=== PATIENT | male | born 1975 | race Asian ===

== ENCOUNTER 2016-05-31 08:48 | Day surgery (SDC) | payer OTHER ==
[~2016-05-31] VITALS: Ht 162.6 cm; Wt 55.5 kg
[2016-05-31] VITALS (12 sets, daily range): BP systolic 96–123; BP diastolic 52–81; PULSE 89–104; RESP 14–18; Ht 162.6 cm; Wt 55.5 kg
[~2016-05-31 08:48] MED LIST: CEFAZOLIN 2 GM/50 ML (PMX) 50 ML IVPB SCH; SOD CHLORIDE 0.9% 1,000 ML IV SCH
[2016-05-31 10:15] LABS: INR 0.95; PROTIME 12.7 Sec (12.2-14.2)
[2016-05-31 10:16] LABS: BASOPHILS % 0.5 % (0.0-2.0); CONDITION 1; EOSINOPHILS # 0.2 10^3/ul (0.0-0.5); EOSINOPHILS % 2.1 % (0.0-7.0); HEMATOCRIT 44.2 % (42.0-52.0); HEMOGLOBIN 14.9 g/dl (14.0-18.0); LYMPHOCYTES # 1.3 10^3/ul (0.8-2.9); LYMPHOCYTES % 16.9 % (15.0-51.0); MEAN CORPUSCULAR HEMOGLOBIN 30.4 pg (29.0-33.0); MEAN CORPUSCULAR HGB CONC 33.6 g/dl (32.0-37.0); MEAN CORPUSCULAR VOLUME 90.5 fl (82.0-101.0); MEAN PLATELET VOLUME 8.6 fl (7.4-10.4); MONOCYTE # 0.5 10^3/ul (0.3-0.9); NEUTROPHIL # 5.9 10^3/ul (1.6-7.5); NEUTROPHILS % 74.5 % (39.0-77.0); PLATELET COUNT 219 10^3/UL (140-440); RED BLOOD COUNT 4.89 10^6/ul (4.70-6.10); RED CELL DISTRIBUTION WIDTH 12.6 % (11.5-14.5); UNCORRECTED WBC 7.9 10^3/ul (4.8-10.8); WHITE BLOOD COUNT 7.9 10^3/ul (4.8-10.8)
[2016-05-31 10:19] LABS: CALCIUM 8.9 mg/dl (8.4-10.2); CREATININE 0.73 mg/dl (0.61-1.24); POTASSIUM 4.1 mmol/L (3.5-5.1)
[2016-05-31] MEDS ORDERED: MIDAZOLAM 1 MG/ML 2 ML INJ ONE (12:04)
[2016-05-31] MEDS ORDERED: PROPOFOL 20 ML ONE (12:04)
[2016-05-31] MEDS ORDERED: SUCCINYLCHOLINE CHLORIDE 100 MG/5 ML SYG IV ONE (12:04)
[2016-05-31] MEDS ORDERED: BUPIVACAINE 0.25% (MPF) 30 ML INJ ONE (12:05)
[2016-05-31] MEDS ORDERED: CEFAZOLIN 1 GM INJ ONE (12:21)
[2016-05-31] MEDS ORDERED: ONDANSETRON 4 MG INJ ONE (12:25)
[2016-05-31] MEDS ORDERED: ESMOLOL 10 ML ONE (12:25)
[2016-05-31] MEDS ORDERED: DEXAMETHASONE 4 MG/ML 1 ML INJ ONE (12:25)
[2016-05-31] MEDS ORDERED: PHENYLephrine (100 MCG/ML) 5ML SYG ONE (12:31)
[2016-05-31] MEDS ORDERED: HYDROCODONE/APAP (5/325) TAB PO ONE (13:00)
--- NOTE | 2016-05-31 13:25 | OPR ---
DATE OF OPERATION: 05/31/2016 INDICATION: This is a 40-year-old male with large hemorrhoids. He requests surgical excision. Ris ks, alternatives, benefits, and personnel were discussed with the patient. Patient expressed unders tanding and consents to the operation. PREOPERATIVE DIAGNOSIS: Hemorrhoids. POSTOPERATIVE DIAGNOSIS: Hemorrhoids. OPERATION PERFORMED: 1. Rigid proctoscopy. 2. Complex internal and external hemorrhoidectomy x2. SURGEON: MD Chantelle SPECIMEN: Right posterior and left lateral. COMPLICATIONS: None. ANESTHESIA: General. PROCEDURE: The patient was taken to the OR and prepped and draped in the usual sterile fashion. Jacobs rgical timeout was performed. IV antibiotics were given. Rigid proctoscopy was performed. No evid ence of masses or lesions. Left lateral column was addressed initially, grabbed with Penningtons. This area was excised after a [id number] 3-0 Vicryl suture. A LigaSure was placed into the hem orrhoidal artery. This area was excised with a 15 blade and handheld LigaSure. Attention was then paid to the right posterior. This area was grasped with Penningtons and excised with handheld LigaS ure and 15 blade. There was good hemostasis on both sites. Local anesthesia was injected. Dry gi ssings were applied. Dictated By: YANIRA PENALOZA/RANCHO Conf#: [id number] DID#: [id number]
[2016-06-01] MEDS ORDERED: INFLUENZA VIRUS VACCINE 0.5 ML (DISPENSING) IM* ONE (09:00)
== END 2016-05-31 16:06 | disposition home or self-care (01) ==
LOC: SDS 08:48
PROVIDERS: ATTEND Surgery
DX: K64.4 Residual hemorrhoidal skin tags (principal); K64.8 Other hemorrhoids
CPT/HCPCS: 46260; 80048; 85025; 85610; 85730; 88305; J0330; J0690; J1100; J2250; J2405; Z7512; Z7610; J2370

== ENCOUNTER 2016-07-04 09:16 | Inpatient (IN) | payer OTHER ==
[~2016-07-04] VITALS: Ht 160 cm; Wt 59.0 kg
[2016-07-04] MEDS ORDERED: ONDANSETRON 4 MG INJ IV STA (09:27)
[2016-07-04] MEDS ORDERED: morphine 4 MG/ML VIAL IV STA (09:27)
[2016-07-04] MEDS ORDERED: ONDANSETRON 4 MG INJ IV PRN ×2 (10:00→13:00)
[2016-07-04] MEDS ORDERED: ACETAMINOPHEN 325 MG TAB PO PRN (10:00)
[2016-07-04 10:09] LABS: BASOPHILS % 0.5 % (0.0-2.0); EOSINOPHILS # 0.2 10^3/ul (0.0-0.5); EOSINOPHILS % 2.1 % (0.0-7.0); HEMATOCRIT 41.1 % (42.0-52.0); HEMOGLOBIN 13.9 g/dl (14.0-18.0); LYMPHOCYTES # 1.8 10^3/ul (0.8-2.9); LYMPHOCYTES % 19.6 % (15.0-51.0); MEAN CORPUSCULAR HEMOGLOBIN 30.7 pg (29.0-33.0); MEAN CORPUSCULAR HGB CONC 33.9 g/dl (32.0-37.0); MEAN CORPUSCULAR VOLUME 90.7 fl (82.0-101.0); MEAN PLATELET VOLUME 8.3 fl (7.4-10.4); MONOCYTE # 0.5 10^3/ul (0.3-0.9); MONOCYTES % 5.5 % (0.0-11.0); NEUTROPHIL # 6.7 10^3/ul (1.6-7.5); NEUTROPHILS % 72.3 % (39.0-77.0); PLATELET COUNT 248 10^3/UL (140-440); RED BLOOD COUNT 4.53 10^6/ul (4.70-6.10); RED CELL DISTRIBUTION WIDTH 12.6 % (11.5-14.5); UNCORRECTED WBC 9.2 10^3/ul (4.8-10.8); WHITE BLOOD COUNT 9.2 10^3/ul (4.8-10.8)
[2016-07-04 10:13] LABS: INR 0.98; PARTIAL THROMBOPLASTIN TIME 30.8 Sec (25.0-35.0)
[2016-07-04 10:20] LABS: CONDITION 1
[2016-07-04 10:25] LABS: ALBUMIN 3.8 g/dl (3.3-4.9); CHLORIDE 106 mmol/L (97-110)
[2016-07-04 10:26] LABS: POTASSIUM 3.9 mmol/L (3.5-5.1); SODIUM 144 mmol/L (135-144)
[2016-07-04 10:28] LABS: ALANINE AMINOTRANSFERASE 24 IU/L (13-69); ALBUMIN/GLOBULIN RATIO 1.22; ALKALINE PHOSPHATASE 53 IU/L (42-121); ANION GAP 15 (8-16); ASPARTATE AMINO TRANSFERASE 18 IU/L (15-46); BILIRUBIN,INDIRECT 0.4 mg/dl (0-1.1); BILIRUBIN,TOTAL 0.4 mg/dl (0.2-1.3); BLOOD UREA NITROGEN 15 mg/dl (7-20); CARBON DIOXIDE 27 mmol/L (21-31); CREATININE 0.83 mg/dl (0.61-1.24); GLUCOSE 105 mg/dl (70-220); TOTAL PROTEIN 6.9 g/dl (6.1-8.1)
[2016-07-04 10:29] LABS: CALCIUM 8.8 mg/dl (8.4-10.2); CREATINE KINASE 82 IU/L (23-200)
[2016-07-04 10:38] LABS: CK-MB 1.02 ng/ml (0.0-2.4)
[2016-07-04 10:46] LABS: TROPONIN-I < 0.012 ng/ml (0.00-0.12)
[2016-07-04 11:40] VITALS: TEMP 98.8
--- NOTE | 2016-07-04 12:06 | ERA ---
ER Documentation Chief Complaint Date/Time DATE: 07/04/16 TIME: 12:06 Chief Complaint rectal pain and bleeding,s/p hemorrhoidectomy,no bm x 1 week HPI This is a 41-year-old male that presents to the emergency department complaining of severe rectal pain and inability to have a bowel movement for the past 7 days. The patient underwent a complex internal and external hemorrhoidectomy performed by the surgeon Dr. Lockhart on May 31 2014, roughly 1 month ago. The patient had a postoperative follow-up 48 hours ago and there appeared to be stenosis overlying the surgical site making it difficult for the patient to defecate. He was informed that he will require further surgical intervention however he stated he was unable to have surgery 2 days ago due to personal reasons and therefore he presents to the emergency department today complaining of worsening of his rectal pain. He has had no fevers no shaking or chills. He denies any discharge from the surgical site or bleeding. He denies any shortness of breath at rest or exertion. He states he has had abdominal distention but denies any abdominal pain ROS All systems reviewed and are negative except as per history of present illness. Medications Home Meds No Active Prescriptions or Reported Meds Allergies Allergies: Coded Allergies: No Known Allergies (Verified Allergy, Unknown, 07/04/16) PMhx/Soc History of Surgery: Yes (hemmorhoidectomy 1 month ago) Anesthesia Reaction: No Hx Neurological Disorder: No Hx Respiratory Disorders: No Hx Cardiac Disorders: No Hx Psychiatric Problems: No Hx Miscellaneous Medical Probl: No Hx Alcohol Use: Yes (OCCASSIONAL) Hx Substance Use: No Hx Tobacco Use: Yes Smoking Status: Unknown if ever smoked Physical Exam Vitals Vital Signs Date Time Temp Pulse Resp B/P Pulse Ox O2 Delivery O2 Flow Rate FiO2 07/04/16 09:18 98.8 116 18 113/78 98 Physical Exam Constitutional:Well-developed. Well-nourished. HEENT:Normocephalic. Atraumatic.Pupils were equal round reactive to light. Moist mucous membranes.No tonsillar exudates. Neck: No nuchal rigidity. No lymphadenopathy. No posterior cervical spine tenderness or step-offs. Respiratory: Not using accessory muscles of respiration.Lungs were clear to auscultation bilaterally. No rhonchi. No rales. No wheezing. Cardiovascular: Regular rate regular rhythm.No murmurs. No rubs were appreciated.S1, S2 normal. Distal pulses are palpable 2+ bilaterally. GI: Abdomen was soft. Nontender. Non Distended. No pulsatile abdominal masses or bruits. No rebound. No guarding. Bowel sounds were present and normal. Rectal: Minimal amount of nonbloody stool surrounding the perirectal region with stenosis over the anal opening and surrounding tenderness with no erythremia or purulent drainage. Muscle skeletal: Full range of motion of both the upper and lower extremities bilaterally.Normal muscle tone.No assymetrical calf tenderness or swelling. Skin: No petechia, no purpura. No lesions on the palms or the soles of the feet. No maculopapular rash. NEURO: Patient was alert, awake, orientated x3.No facial droop. Gait observed and normal with no ataxia.Speech had regular rate and rhythm. No focal neurological deficits. Result Diagram: 07/04/16 0940 07/04/16 1007 Results 24 hrs Laboratory Tests Test 07/04/16 09:40 Activated Partial Thromboplast Time 30.8Sec Basophils # 0.010^3/ul Basophils % 0.5% Eosinophils # 0.210^3/ul Eosinophils % 2.1% Hematocrit 41.1% Hemoglobin 13.9g/dl INR International Normalized Ratio 0.98 Lymphocytes # 1.810^3/ul Lymphocytes % 19.6% Mean Corpuscular Hemoglobin 30.7pg Mean Corpuscular Hemoglobin Concent 33.9g/dl Mean Corpuscular Volume 90.7fl Mean Platelet Volume 8.3fl Monocytes # 0.510^3/ul Monocytes % 5.5% Neutrophils # 6.710^3/ul Neutrophils % 72.3% Nucleated Red Blood Cells # 0.010^3/ul Nucleated Red Blood Cells % 0.0/100WBC Platelet Count 53354^3/UL Prothrombin Time 13.0Sec Prothrombin Time Ratio 1.0 Red Blood Count 4.5310^6/ul Red Cell Distribution Width 12.6% White Blood Count 9.210^3/ul Current Medications Medications (Trade) Dose Ordered Sig/Mark Route PRN Reason Start Time Stop Time Status Last Admin Dose Admin Morphine Sulfate (morphine) 4 mg ONCE STAT IV 07/04/16 09:27 07/04/16 09:32 DC 07/04/16 09:53 Ondansetron HCl (Zofran Inj) 4 mg ONCE STAT IV 07/04/16 09:27 07/04/16 09:32 DC 07/04/16 09:52 Procedures/MDM This patient presented to the emergency department with postoperative pain. He immediately was placed on a sociology teacher continuous pulse oximetry and IV access had been established by nursing staff. He received intravenous morphine and Zofran for analgesic control. The patient was made n.p.o. on I spoke with the surgeon Dr. Lockhart who kindly stated he will take the patient to the OR for definitive treatment. He will be admitted as requested by Dr. Lockhart to Dr. Weiss. The patient had no electrolyte abnormalities and the patient received intravenous morphine and Zofran for analgesic control 12 Lead EKG tracing ordered and reviewed by myself showed: Normal sinus rhythm of 89 bpm and no arrhythmia. IN interval normal. QRS duration normal. No ST segment elevation No ST segment depression. No changes consistent with acute ischemia. Departure Diagnosis: Primary Impression: Post-operative pain Additional Impression: Rectal/anal stenosis Condition: Serious MICHAEL YEPEZ Jul 04, 2016 12:06 07/04/16 09:32 DC 07/04/16 09:52 Ondansetron HCl (Zofran Inj) 4 mg BRIDGE ORDER PRN IV NAUSEA AND/OR VOMITING 07/04/16 10:00 07/05/16 09:59 Acetaminophen (Tylenol Tab) 650 mg ER BRIDGE PRN PO MILD PAIN/FEVER 07/04/16 10:00 07/05/16 09:59 MICHAEL YEPEZ Jul 04, 2016 12:06
[2016-07-04 12:23] VITALS: Ht 160 cm; Wt 59.0 kg
[2016-07-04 12:30] VITALS: BP 112/73; PULSE 96; RESP 18
[2016-07-04] MEDS ORDERED: morphine 2 MG INJ IV PRN (13:00)
[2016-07-04] MEDS ORDERED: CEFAZOLIN 1 GM/50 ML (PMX) 50 ML IVPB SCH (13:00)
[2016-07-04] MEDS: PANTOPRAZOLE 40 MG INJ IV SCH (15:08)
[2016-07-04] MEDS: D5W-0.45 NACL + KCL 20 MEQ 1,000 ML IV SCH (15:08)
--- NOTE | 2016-07-04 15:10 | HP ---
DATE OF ADMISSION: 07/04/2016 CHIEF COMPLAINT: Rectal pain and bleeding. HISTORY OF PRESENT ILLNESS: The patient is a 41-year-old male who presented to the emergency room w ith complaints of severe rectal pain and inability to have a bowel movement for the last 7 days. Th e patient underwent complex internal and external hemorrhoidectomy on 05/31/[address] Lockhart. The pa buffy was able to have a bowel movement; however, the patient's last bowel movement was 7 days ago. The patient was seen by Dr. Lockhart. The patient appeared to have stenosis overlying the surgical site which makes it difficult to defecate. The patient will be admitted and undergo surgical interventi on by Dr. Lockhart today. The patient denies any fever or chills. Denies any nausea, vomiting, diarrhea . The patient also stated that he had low p.o. intake due to the fact that every time he eats he wa nts to have a bowel movement, however unable to do so. PAST MEDICAL HISTORY AND PAST SURGICAL HISTORY: Hemorrhoids status post hemorrhoidectomy. The nancie ent denies any other past medical history and stated that he is otherwise healthy. FAMILY HISTORY: Noncontributory. SOCIAL HISTORY: The patient smokes about 1 pack of cigarettes per day. Denies any alcohol use, den ies any illicit drug use. ALLERGIES: NO KNOWN ALLERGIES. MEDICATIONS: The patient denies having any routine medications. REVIEW OF SYSTEMS: A 12-point review of systems is negative unless what mentioned in the HPI. PHYSICAL ASSESSMENT: GENERAL: Well-developed, well-nourished male in no acute distress, currently awake, alert. VITAL SIGNS: Temperature is 98.8, pulse is 91, blood pressure is 119/78, respiratory rate 18, oxyge n saturation 99% on room air. HEENT: Head is atraumatic, normocephalic. Pupils equal, round, reactive to light and accommodation . Oral mucosa is pink and moist. NECK: Supple. No cervical lymphadenopathy, no thyromegaly. CHEST: Lungs clear bilaterally. There are no rhonchi, wheezes, rales noted. CARDIOVASCULAR: Normal S1, S2. No murmurs, gallops, clicks, rubs noted. ABDOMEN: Round, soft, slightly distended, nontender. Bowel sounds present. There is no guarding. EXTREMITIES: No edema, clubbing, cyanosis. Pulses equal bilaterally 2+. SKIN: There is no rash, petechiae noted. NEUROLOGIC: The patient is awake, alert, and oriented x4. No focal deficits noted. Motor strength 5/5 in all extremities. LABORATORY DATA: On admission, CBC: White blood cells 9.2, hemoglobin 13.9, hematocrit 41.1, plate lets 248. Chemistry: Sodium is 144, potassium 3.9, chloride 106, carbon dioxide 27, anion gap 15, BUN 15, creatinine 0.38, glucose 105. PT is 13.0, INR is 0.98, PTT is 30.8. ASSESSMENT: 1. Rectal/anal stenosis. 2. Status post external and internal hemorrhoidectomy 1 month ago. PLAN: We will continue the patient's n.p.o. Morphine p.r.n. for nausea, Zofran p.r.n. for pain. C ontinue IV fluids. The patient will be going for surgery by Dr. Lockhart today. We will continue Proton ix for peptic ulcer disease prophylaxis and sequential compression device for deep venous thrombosis prophylaxis. Check CBC and BMP tomorrow. Further recommendations based on clinical course. Plan of care discussed with Dr. Weiss. Dictated By: ISRAEL MICHAELS NURSING ADMINISTRATOR for WINDY WEISS MD SR/NTS Conf#: [id number] DID#: [id number]
--- NOTE | 2016-07-04 16:25 | HP ---
DATE OF ADMISSION: 07/04/2016 CHIEF COMPLAINT: Anal stenosis. HISTORY OF PRESENT ILLNESS: This is a 41-year-old male who underwent hemorrhoidectomy. He was not good with his bowel regimen and had not had a bowel movement in almost a week. He is having pain an d has difficulty with bowel movements. He requests possible surgical disimpaction and possible anal dilatation and examination under anesthesia. PAST MEDICAL HISTORY AND SURGICAL HISTORY: Hemorrhoidectomy. FAMILY HISTORY: Noncontributory. SOCIAL HISTORY: The patient smokes about 1 pack of cigarettes per day. ALLERGIES: NO KNOWN DRUG ALLERGIES. MEDICATIONS: No routine medications. REVIEW OF SYSTEMS: A 12-point review of systems is negative except for mentioned in the HPI. PHYSICAL EXAMINATION: GENERAL: Well developed. VITAL SIGNS: Temperature 98.9, pulse 91, respiratory rate is 18, blood pressure is 119/78, pulse ox 99% on room air. HEENT: Head is atraumatic, normocephalic. NECK: Supple, midline. HEART: Regular rate and rhythm. LUNGS: Clear to auscultation. ABDOMEN: Soft. EXTREMITIES: No edema. SKIN: Warm, pink. NEUROLOGIC: Intact. ASSESSMENT AND PLAN: Anal stenosis status post hemorrhoidectomy with possible fecal impaction. Yudi n is to take the patient to the OR for examination under anesthesia and anal dilatation and possible fecal disimpaction. Dictated By: YANRIA PENALOZA/RANCHO Conf#: [id number] DID#: [id number]
[2016-07-04 19:41] VITALS: BP 101/64; RESP 20
[2016-07-05] VITALS (14 sets, daily range): BP systolic 99–118; BP diastolic 58–78; PULSE 81–99; RESP 16–22
[2016-07-05 05:22] LABS: BASOPHILS % 0.5 % (0.0-2.0); EOSINOPHILS # 0.2 10^3/ul (0.0-0.5); EOSINOPHILS % 3.5 % (0.0-7.0); HEMATOCRIT 39.4 % (42.0-52.0); HEMOGLOBIN 13.4 g/dl (14.0-18.0); LYMPHOCYTES # 1.8 10^3/ul (0.8-2.9); LYMPHOCYTES % 27.3 % (15.0-51.0); MEAN CORPUSCULAR HGB CONC 34.1 g/dl (32.0-37.0); MEAN CORPUSCULAR VOLUME 91.1 fl (82.0-101.0); MEAN PLATELET VOLUME 8.4 fl (7.4-10.4); MONOCYTE # 0.5 10^3/ul (0.3-0.9); MONOCYTES % 7.7 % (0.0-11.0); NEUTROPHIL # 4.1 10^3/ul (1.6-7.5); PLATELET COUNT 227 10^3/UL (140-440); RED BLOOD COUNT 4.32 10^6/ul (4.70-6.10); RED CELL DISTRIBUTION WIDTH 12.6 % (11.5-14.5); UNCORRECTED WBC 6.7 10^3/ul (4.8-10.8); WHITE BLOOD COUNT 6.7 10^3/ul (4.8-10.8)
[2016-07-05] MEDS: PANTOPRAZOLE 40 MG INJ IV SCH (05:48)
[2016-07-05] MEDS: D5W-0.45 NACL + KCL 20 MEQ 1,000 ML IV SCH (05:49)
[2016-07-05 05:55] LABS: CONDITION 1
[2016-07-05 06:15] LABS: POTASSIUM 4.2 mmol/L (3.5-5.1)
[2016-07-05 06:17] LABS: CREATININE 0.82 mg/dl (0.61-1.24)
[2016-07-05 06:18] LABS: CALCIUM 8.3 mg/dl (8.4-10.2)
--- NOTE | 2016-07-05 10:34 | PN ---
Date/Time of Note Date/Time of Note DATE: 07/05/16 TIME: 10:32 Assessment/Plan VTE Prophylaxis VTE Prophylaxis Intervention: SCD's Lines/Catheters IV Catheter Type (from Nrsg): Peripheral IV Assessment/Plan Assessment/Plan 1. Rectal/anal stenosis. - per surgery - going for surgery by Dr. Lockhart today - n.p.o. Morphine p.r.n. for nausea, Zofran p.r.n. for pain. - Continue IV fluids. 2. Status post external and internal hemorrhoidectomy 1 month ago. Protonix for peptic ulcer disease prophylaxis and sequential compression device for deep venous thrombosis prophylaxis. Check CBC and BMP tomorrow. Further recommendations based on clinical course. Plan of care discussed with Dr. Weiss. Subjective 24 Hr Interval Summary Eyes: no complaints ENT: no complaints Respiratory: no complaints Cardiovascular: no complaints Gastrointestinal: no complaints Genitourinary: no complaints Musculoskeletal: no complaints Skin: no complaints Neurologic: no complaints Lymphatic: no complaints Psychological: no complaints Immunologic: no complaints Exam/Review of Systems Vital Signs Vitals Vital Signs Date Time Temp Pulse Resp B/P Pulse Ox O2 Delivery O2 Flow Rate FiO2 07/05/16 07:26 97.0 78 19 105/66 98 07/04/16 12:30 Room Air Intake and Output 07/04/16 07/04/16 07/05/16 15:00 23:00 07:00 Intake Total 225 ml 1650 ml Balance 225 ml 1650 ml Exam Constitutional: alert, oriented, well developed Psych: nl mood/affect Eyes: EOMI, PERRL ENMT: nl external ears & nose Cardiovascular: nl pulses Gastrointestinal: non-tender, other, soft Musculoskeletal: nl extremities to inspection Neurological: nl mental status Skin: nl turgor Results Result Diagram: 07/05/16 04307/05/16 0430 Results 24 hrs Laboratory Tests Test 07/05/16 04:30 Anion Gap 14 Basophils # 0.0 Basophils % 0.5 Blood Urea Nitrogen 12 Calcium Level 8.3 L Carbon Dioxide Level 26 Chloride Level 104 Creatinine 0.82 Eosinophils # 0.2 Eosinophils % 3.5 Glucose Level 105 Hematocrit 39.4 L Hemoglobin 13.4 L Lymphocytes # 1.8 Lymphocytes % 27.3 Mean Corpuscular Hemoglobin 31.0 Mean Corpuscular Hemoglobin Concent 34.1 Mean Corpuscular Volume 91.1 Mean Platelet Volume 8.4 Monocytes # 0.5 Monocytes % 7.7 Neutrophils # 4.1 Neutrophils % 61.0 Nucleated Red Blood Cells # 0.0 Nucleated Red Blood Cells % 0.0 Platelet Count 227 Potassium Level 4.2 Red Blood Count 4.32 L Red Cell Distribution Width 12.6 Sodium Level 140 White Blood Count 6.7 # Medications Medications Current Medications Ondansetron HCl (Zofran Inj) 4 mg Q4H PRN IV NAUSEA AND/OR VOMITING; Start 07/04 at 13:00 Morphine Sulfate 2 mg 2 mg Q3H PRN IV PAIN; Start 07/04/16 at 13:00 Potassium Chloride/Dextrose/ Sod Cl (D5-1/2ns + KCl 20 Meq) 1,000 ml @ 75 mls/ hr [id number] IV Last administered on 07/05/16 05:49; Admin Dose 75 MLS/HR; Start 07/04/16 at 13:00 Influenza Virus Vaccine (Fluzone) 0.5 ml ONCE ONCE IM* ; Start 07/05/16 at 12:00 ; Stop 07/05/16 at 12:01 Pantoprazole (Protonix Iv) 40 mg DAILY@06 IV Last administered on 07/05/16 05: 48; Admin Dose 40 MG; Start 07/04/16 at 14:30 ZEINA VALENTIN Jul 05, 2016 10:34
[2016-07-05] MEDS ORDERED: BUPIVACAINE 0.25% (MPF) 30 ML INJ ONE (11:42)
[2016-07-05] MEDS ORDERED: INFLUENZA VIRUS VACCINE 0.5 ML SYG IM* ONE (12:00)
[2016-07-05] MEDS ORDERED: LIDOCAINE 2% (SDV) 5 ML INJ ONE (12:39)
[2016-07-05] MEDS ORDERED: NEOSTIGMINE 3 MG/3 ML SYRINGE ONE (12:39)
[2016-07-05] MEDS ORDERED: ROCURONIUM 50 MG INJ ONE (12:39)
[2016-07-05] MEDS ORDERED: PROPOFOL 20 ML ONE (12:39)
[2016-07-05] MEDS ORDERED: SUCCINYLCHOLINE CHLORIDE 100 MG/5 ML SYG IV ONE (12:39)
[2016-07-05] MEDS ORDERED: GLYCOPYRROLATE 0.4 MG INJ ONE (12:39)
[2016-07-05] MEDS ORDERED: CEFAZOLIN 1 GM INJ ONE (13:04)
--- NOTE | 2016-07-05 13:24 | OPR ---
Date/Time of Note Date/Time of Note DATE: 07/05/16 TIME: 13:23 Operative Report Procedure Date: Jul 05, 2016 Preoperative Diagnosis anal stenosis Postoperative Diagnosis anal stenosis Operation Performed examination under anesthesia and anal dilation Surgeon: Maureen PRICE Anesthesia: general Maureen PRICE Jul 05, 2016 13:24
[2016-07-05] MEDS: CEFAZOLIN 2 GM/50 ML (PMX) 50 ML IVPB SCH ×2 (13:30→21:54)
[2016-07-05] MEDS: HYDROmorphONE 1 MG/ML SYG IV PRN ×2 (13:53→22:15)
[2016-07-05 14:18] LABS: ADD SCAN DIFF NO
--- NOTE | 2016-07-05 14:23 | OPR ---
DATE OF OPERATION: 07/05/2016 INDICATIONS: This is a 41-year-old male presenting with anal stenosis. He requests surgical repair . The risks, alternatives, benefits, and personnel were discussed with the patient. Potential comp lications including, but not limited to, bleeding, infection, and incontinence were discussed with t he patient. The patient expressed understanding and consented to the operation. Additionally, this patient reports that he had attempted to place a chopstick in his anus to try to attempt recanalization. PREOPERATIVE DIAGNOSIS: Anal stenosis. POSTOPERATIVE DIAGNOSIS: Anal stenosis. OPERATION: 1. Examination under anesthesia. 2. Anal dilatation. 3. Fecal disimpaction. SURGEON: Kat Lockhart MD SPECIMENS: None. COMPLICATIONS: None. ANESTHESIA: General. DESCRIPTION OF PROCEDURE: The patient was taken to the OR and prepped and draped in the usual steri le fashion. A surgical timeout was performed. IV antibiotics were given. Examination was performed. There appeared to be anal stenosis. This area was slowly dilated using digital manipulation. There was also fecal impaction. This was also removed. The anal stenosis was then examined and dilated slowly and gradually. Some scar tissue was mobilize d. Some scar tissue was also excised. There was no evidence of any masses or lesions. The sphinct er muscle was normal and intact. Hemostasis was established. Local anesthesia was injected. Dry d ressings were applied. Dictated By: KAT PENALOZA/RANCHO Conf#: [id number] DID#: [id number]
[2016-07-05] MEDS: morphine 2 MG INJ IV PRN ×3 (14:34→19:44)
[2016-07-05 14:43] LABS: BASOPHILS % 0.9 % (0.0-2.0); EOSINOPHILS # 0.1 10^3/ul (0.0-0.5); EOSINOPHILS % 3.1 % (0.0-7.0); HEMATOCRIT 41.2 % (42.0-52.0); HEMOGLOBIN 13.6 g/dl (14.0-18.0); LYMPHOCYTES # 0.8 10^3/ul (0.8-2.9); LYMPHOCYTES % 17.1 % (15.0-51.0); MEAN CORPUSCULAR HEMOGLOBIN 30.4 pg (29.0-33.0); MEAN CORPUSCULAR VOLUME 92.2 fl (82.0-101.0); MEAN PLATELET VOLUME 9.7 fl (7.4-10.4); MONOCYTES % 0.9 % (0.0-11.0); NEUTROPHIL # 3.5 10^3/ul (1.6-7.5); NEUTROPHILS % 77.8 % (39.0-77.0); PLATELET COUNT 210 10^3/UL (140-415); RED BLOOD COUNT 4.47 10^6/ul (4.70-6.10); RED CELL DISTRIBUTION WIDTH 11.8 % (11.5-14.5); WHITE BLOOD COUNT 4.6 10^3/ul (4.8-10.8)
[2016-07-05 14:47] LABS: ABNORMAL IP MESSAGE 1
[2016-07-05] MEDS: LACTATED RINGER'S 1,000 ML IV SCH ×2 (15:20→23:52)
[2016-07-05] MEDS: HYDROCODONE/APAP (5/325) TAB PO PRN (20:28)
[2016-07-06] MEDS: LACTATED RINGER'S 1,000 ML IV SCH (05:53)
[2016-07-06] MEDS: CEFAZOLIN 2 GM/50 ML (PMX) 50 ML IVPB SCH (05:53)
[2016-07-06] MEDS: PANTOPRAZOLE 40 MG INJ IV SCH (05:54)
[2016-07-06 06:18] LABS: ADD SCAN DIFF NO
[2016-07-06 06:59] LABS: POTASSIUM 4.5 mmol/L (3.5-5.1)
[2016-07-06 07:01] LABS: CREATININE 0.71 mg/dl (0.61-1.24)
[2016-07-06 07:02] LABS: CALCIUM 8.6 mg/dl (8.4-10.2)
[2016-07-06 08:00] VITALS: BP 113/65; RESP 20
[2016-07-06] MEDS: morphine 2 MG INJ IV PRN (08:17)
[2016-07-06 10:20] LABS: BASOPHILS % 0.2 % (0.0-2.0); EOSINOPHILS # 0.1 10^3/ul (0.0-0.5); EOSINOPHILS % 0.7 % (0.0-7.0); HEMATOCRIT 42.6 % (42.0-52.0); HEMOGLOBIN 13.9 g/dl (14.0-18.0); LYMPHOCYTES # 0.8 10^3/ul (0.8-2.9); LYMPHOCYTES % 6.2 % (15.0-51.0); MEAN CORPUSCULAR HEMOGLOBIN 30.9 pg (29.0-33.0); MEAN CORPUSCULAR HGB CONC 32.6 g/dl (32.0-37.0); MEAN CORPUSCULAR VOLUME 94.7 fl (82.0-101.0); MEAN PLATELET VOLUME 10.4 fl (7.4-10.4); MONOCYTE # 0.6 10^3/ul (0.3-0.9); MONOCYTES % 5.3 % (0.0-11.0); NEUTROPHIL # 10.5 10^3/ul (1.6-7.5); NEUTROPHILS % 87.4 % (39.0-77.0); PLATELET COUNT 215 10^3/UL (140-415); RED CELL DISTRIBUTION WIDTH 11.8 % (11.5-14.5)
[2016-07-06] MEDS: HYDROCODONE/APAP (5/325) TAB PO PRN (12:30)
--- NOTE | 2016-07-09 02:50 | DS ---
DATE OF ADMISSION: 07/04/2016 DATE OF DISCHARGE: 07/06/2016 FINAL DIAGNOSES: 1. Anal stenosis status post anal dilatation and fecal disimpaction. 2. Status post external and internal hemorrhoidectomy 1 month ago. BRIEF HISTORY: The patient is a 41-year-old male who presented to the emergency room with complaint of severe rectal pain and inability to have a bowel movement for 1 week. The patient underwent a c omplex internal and external hemorrhoidectomy on 05/31/[address] Lockhart. The patient recovered well and was able to have a bowel movement until 7 days ago. The patient was seen by Dr. Lockhart and patient appeared to have stenosis overlying the surgical site which made it difficult to defecate. Patient was admitted to undergo surgical intervention by Dr. Lockhart. HOSPITAL COURSE: The patient underwent examination under anesthesia and underwent anal dilatation a nd fecal disimpaction by Dr. Lockhart. The patient experienced some pain and was given morphine and Norc o for pain and also received postoperative antibiotic cefazolin and patient's condition improved. T he patient was able to have a bowel movement and patient is discharged home. CONDITION ON DISCHARGE: Hemodynamically stable. ACTIVITY: As patient tolerates. DISCHARGE MEDICATIONS: Patient is given prescription for [place] and Colace by Dr. Lockhart. RECOMMENDATIONS: Patient is instructed to follow up with Dr. Hernandez in postoperative appointment kin 1 week. Interdisciplinary plan of care was established for this patient. Plan of care was discussed with Dr Tricia Corrales. Dictated By: ISRAEL MICHAELS DISABILITY REPRESENTATIVE for WINDY CORRALES MD SR/NTS Conf#: [id number] DID#: [id number]
== END 2016-07-06 12:40 | disposition home or self-care (01) | DRG 395 ==
LOC: E/R 09:16 → MS1 09:52
PROVIDERS: ADMIT Internal Medicine; ATTEND Internal Medicine
PROC: 0DCQ7ZZ Extirpation of Matter from Anus, Via Natural or Artificial Opening (ICD-10-PCS; 2016-07-05)
PROC: 0D7Q7ZZ Dilation of Anus, Via Natural or Artificial Opening (ICD-10-PCS; principal; 2016-07-05 12:00)
DX: K62.4 Stenosis of anus and rectum (principal); F17.210 Nicotine dependence, cigarettes, uncomplicated; G89.18 Other acute postprocedural pain; Z98.890 Other specified postprocedural states
CPT/HCPCS: 80048; 80053; 82550; 82553; 84484; 85025; 85610; 85730; 90686; 93005; 96374; 96375; C9113; J0330; J0690; J1170; J2270; J2405; J2710; J3480; J7120

== ENCOUNTER 2016-08-07 21:44 | Emergency (ER) | payer SELFPAY ==
[~2016-08-07] VITALS: Ht 152.4 cm; Wt 54.0 kg
[2016-08-07 22:29] VITALS: Ht 152.4 cm; Wt 54.0 kg
[2016-08-09] MEDS ORDERED: DOCU-144 PO (13:29)
[2016-08-09] MEDS ORDERED: HYDR-3498 PO (13:29)
[2016-08-09] MEDS ORDERED: PANT40TA3 PO (13:29)
[2016-08-09] MEDS ORDERED: CIPR500T4 PO (16:36)
[2016-08-09] MEDS ORDERED: METR500T PO (16:36)
== END 2016-08-07 23:52 | disposition left against medical advice (07) ==
LOC: FTE 21:44
DX: Z53.21 Procedure and treatment not carried out due to patient leaving prior to being seen by health care provider (principal)

== ENCOUNTER 2016-08-08 08:54 | Observation (INO) | END 2016-08-09 14:10 | disposition home or self-care (01) | DX: K62.4 Stenosis of anus and rectum (principal); K64.8 Other hemorrhoids; K64.4 Residual hemorrhoidal skin tags; K59.00 Constipation, unspecified; F17.210 Nicotine dependence, cigarettes, uncomplicated | CPT/HCPCS: 36415; 45303; 46260; 74176; 80053; 83690; 85025; 85610; 85730; 88304; 96361; 96365; 96374; 96375; 96376; J0690; J1170; J2270; J2405; J3010; J7030; J7120; Z7500; Z7502; Z7512; Z7610 ==

== ENCOUNTER 2016-09-12 07:42 | Day surgery (SDC) | payer OTHER ==
[2016-09-12] VITALS (20 sets, daily range): BP systolic 95–122; BP diastolic 62–80; PULSE 76–92; RESP 16–18; TEMP 97.9; Ht 157.5 cm; Wt 54.0 kg
[~2016-09-12] VITALS: Ht 157.5 cm; Wt 54.0 kg
[~2016-09-12 07:42] MED LIST changes: -CEFAZOLIN 2 GM/50 ML (PMX) 50 ML IVPB SCH; +CIPR500T4 PO; +DOCU-144 PO; +HYDR-3498 PO; +METR500T PO; +PANT40TA3 PO; +PROPOFOL 200 MG INJ ONE; -SOD CHLORIDE 0.9% 1,000 ML IV SCH
[2016-09-12] MEDS ORDERED: D5W-0.45 NACL + KCL 20 MEQ 1,000 ML IV STA (08:47)
--- NOTE | 2016-09-12 10:02 | RADRPT ---
PROCEDURE: XR Chest. CLINICAL INDICATION: Abdominal pain TECHNIQUE: Single frontal view of the chest was obtained COMPARISON: None FINDINGS: The heart and mediastinum are within normal limits. The lungs are clear. There is no pleural effusion or pneumothorax. RPTAT: AA IMPRESSION: No acute disease. .Aurelio Avila MD, Date Time Electronically viewed and signed by .Aurelio Avila MD, on 09/12/2016 10:02 .S/
[2016-09-12 10:07] LABS: ADD SCAN DIFF NO
[2016-09-12 10:11] LABS: BASOPHIL # 0.1 10^3/ul (0.0-0.1); BASOPHILS % 0.6 % (0.0-2.0); EOSINOPHILS # 0.2 10^3/ul (0.0-0.5); EOSINOPHILS % 2.9 % (0.0-7.0); HEMATOCRIT 43.8 % (42.0-52.0); HEMOGLOBIN 14.7 g/dl (14.0-18.0); LYMPHOCYTES # 1.9 10^3/ul (0.8-2.9); LYMPHOCYTES % 22.8 % (15.0-51.0); MEAN CORPUSCULAR HEMOGLOBIN 30.6 pg (29.0-33.0); MEAN CORPUSCULAR HGB CONC 33.6 g/dl (32.0-37.0); MEAN CORPUSCULAR VOLUME 91.3 fl (82.0-101.0); MEAN PLATELET VOLUME 9.9 fl (7.4-10.4); MONOCYTE # 0.5 10^3/ul (0.3-0.9); MONOCYTES % 5.9 % (0.0-11.0); NEUTROPHIL # 5.5 10^3/ul (1.6-7.5); NEUTROPHILS % 67.4 % (39.0-77.0); PLATELET COUNT 268 10^3/UL (140-415); RED CELL DISTRIBUTION WIDTH 12.2 % (11.5-14.5); WHITE BLOOD COUNT 8.2 10^3/ul (4.8-10.8)
[2016-09-12 10:19] LABS: POTASSIUM 3.9 mmol/L (3.5-5.1)
[2016-09-12 10:21] LABS: CREATININE 0.75 mg/dl (0.61-1.24)
[2016-09-12 10:22] LABS: CALCIUM 9.4 mg/dl (8.4-10.2)
[2016-09-12 10:33] LABS: INR 0.91; PROTIME 12.3 Sec (12.2-14.2)
[2016-09-12 10:34] LABS: PARTIAL THROMBOPLASTIN TIME 32.6 Sec (25.0-35.0)
--- NOTE | 2016-09-12 10:45 | ERA ---
ER Documentation Chief Complaint Date/Time DATE: 09/12/16 TIME: 10:41 Chief Complaint HAD RECTAL BLEEDING HAS HX OF HEMMRHOIDS HPI 41-year-old male sent in by Dr. Lockhart for difficulty having bowel movements. Patient has a history of hemorrhoids status post hemorrhoidectomy complicated by anal stenosis. He had multiple dilations within the past few months, with recurrence of his symptoms. He is unable to have bowel movements. He complains of abdominal discomfort but no severe pain. No nausea or vomiting. No fevers or chills. ROS All systems reviewed and are negative except as per history of present illness. Medications Home Meds Active Scripts Metronidazole* (Flagyl*) 500 Mg Tablet, 500 MG PO TID for 7 Days, TAB Prov:ZEINA VALENTIN 08/09/16 Ciprofloxacin Hcl* (Ciprofloxacin Hcl*) 500 Mg Tablet, 500 MG PO BID for 7 Days , TAB Prov:ZEINA VALENTIN 08/09/16 Pantoprazole* (Protonix*) 40 Mg Tablet.dr, 40 MG PO DAILY, #20 TAB Prov:ZEINA VALENTIN 08/09/16 Docusate Sodium* (Colace*) 100 Mg Capsule, 100 MG PO BID, #30 CAP Prov:ZEINA VALENTIN 08/09/16 Hydrocodone Bit-Acetaminophen (Hydrocodone Bit-APAP) 5-325MG Tablet, 1 TAB PO Q6H Y for PAIN LEVEL 6-10, #20 TAB Prov:ZEINA VALENTIN 08/09/16 Allergies Allergies: Coded Allergies: No Known Allergies (Verified Allergy, Unknown, 08/08/16) PMhx/Soc History of Surgery: Yes (hemorrhoidectomy complicated by anal stenosis) Anesthesia Reaction: No Hx Neurological Disorder: No Hx Respiratory Disorders: No Hx Cardiac Disorders: No Hx Psychiatric Problems: No Hx Miscellaneous Medical Probl: No Hx Alcohol Use: No Hx Substance Use: No Hx Tobacco Use: No FmHx Family History: No diabetes Physical Exam Vitals Vital Signs Date Time Temp Pulse Resp B/P Pulse Ox O2 Delivery O2 Flow Rate FiO2 09/12/16 09:41 98.3 88 18 116/74 100 Room Air 09/12/16 07:49 97.5 99 18 120/82 100 Physical Exam Const: Thin male, no apparent distress Head: Atraumatic Eyes: Normal Conjunctiva ENT: Normal External Ears, Nose and Mouth. Neck: Full range of motion..~ No meningismus. Resp: Clear to auscultation bilaterally Cardio: Regular rate and rhythm, no murmurs Abd: Soft, non tender, non distended. Normal bowel sounds Skin: No petechiae or rashes Back: No midline or flank tenderness Ext: No cyanosis, or edema Neur: Awake and alert Psych: Normal Mood and Affect Result Diagram: 09/12/16 0910 09/12/16 0910 Results 24 hrs Laboratory Tests Test 09/12/16 09:10 White Blood Count 8.210^3/ul Red Blood Count 4.8010^6/ul Hemoglobin 14.7g/dl Hematocrit 43.8% Mean Corpuscular Volume 91.3fl Mean Corpuscular Hemoglobin 30.6pg Mean Corpuscular Hemoglobin Concent 33.6g/dl Red Cell Distribution Width 12.2% Platelet Count 09681^3/UL Mean Platelet Volume 9.9fl Neutrophils % 67.4% Lymphocytes % 22.8% Monocytes % 5.9% Eosinophils % 2.9% Basophils % 0.6% Nucleated Red Blood Cells % 0.0/100WBC Neutrophils # 5.510^3/ul Lymphocytes # 1.910^3/ul Monocytes # 0.510^3/ul Eosinophils # 0.210^3/ul Basophils # 0.110^3/ul Nucleated Red Blood Cells # 0.010^3/ul Prothrombin Time 12.3Sec Prothrombin Time Ratio 1.0 INR International Normalized Ratio 0.91 Activated Partial Thromboplast Time 32.6Sec Sodium Level 143mmol/L Potassium Level 3.9mmol/L Chloride Level 103mmol/L Carbon Dioxide Level 26mmol/L Anion Gap 18 Blood Urea Nitrogen 12mg/dl Creatinine 0.75mg/dl Glucose Level 106mg/dl Calcium Level 9.4mg/dl Current Medications Medications (Trade) Dose Ordered Sig/Mark Route PRN Reason Start Time Stop Time Status Last Admin Dose Admin Potassium Chloride/Dextrose/ Sod Cl (D5-1/2ns + KCl 20 Meq) 1,000 ml @ 80 mls/hr [id number] STAT IV 09/12/16 08:47 09/12/16 21:16 09/12/16 09:05 Procedures/MDM Chest X-ray 1V Interpreted by me: Soft Tissue: No acute abnormalities Bones: No acute abnormalities Mediastinum/Cardiac Silhouette/Lungs: No acute abnormalities EKG: Rate/Rhythm: Normal Sinus Rhythm QRS, ST, T-waves: No changes consistent w/ acute ischemia Impression: No evidence of ischemia or arrhythmia Patient is here for anal stenosis and mechanical bowel obstruction. Vitals are stable. He is well-appearing. Preop workup was started. Patient will be admitted by Dr. Weiss and will be taken to the OR by Dr. Lockhart. Departure Diagnosis: Primary Impression: Acquired anal stenosis PRESTON AG MD Sep 12, 2016 10:45
[2016-09-12] MEDS ORDERED: ONDANSETRON 4 MG INJ IV PRN (11:30)
[2016-09-12] MEDS ORDERED: ACETAMINOPHEN 325 MG TAB PO PRN (11:30)
--- NOTE | 2016-09-12 15:57 | CONS ---
DATE OF ADMISSION: 09/12/2016 DATE OF CONSULTATION: 09/12/2016 INDICATION: This is a 41-year-old male who underwent hemorrhoid surgery and felt anal stenosis. He presents to the ER with 5 days of difficulty with passing stool, however, has been passing some gas . He is brought for evaluation for surgical management. PAST MEDICAL HISTORY: None. PAST SURGICAL HISTORY: Hemorrhoidectomy and anal dilation. PHYSICAL EXAMINATION: VITAL SIGNS: On exam, temperature is 98.3, pulse is 88, respiratory rate is 18, blood pressure is 1 16/74 GENERAL: This is a thin male in no apparent distress. HEENT: PERRLA. EOMI. CARDIOVASCULAR: Regular rate and rhythm. RESPIRATORY: Clear to auscultation. ABDOMEN: Soft, nontender. RECTAL: Deferred. LABORATORY DATA: White blood cell count is 8.2, hemoglobin is 14.7, hematocrit is 43.8, platelet co unt is 268. Electrolytes: Sodium is 143, potassium is 3.9, chloride is 103, carbon dioxide is 26, BUN is 12, creatinine is 0.7, glucose is 106, calcium is 9.3. ASSESSMENT AND PLAN: This is a 41-year-old male with anal stenosis. He is taken to the OR for anal dilation, fecal disimpaction. Dictated By: YANIRA PENALOZA/RANCHO Conf#: [id number] DID#: [id number]
[2016-09-12] MEDS ORDERED: FENTAnyl 50 MCG/ML VIAL ONE (16:42)
[2016-09-12] MEDS ORDERED: SUCCINYLCHOLINE CHLORIDE 100 MG/5 ML SYG IV ONE (16:42)
[2016-09-12] MEDS ORDERED: PROPOFOL 20 ML ONE (16:42)
[2016-09-12] MEDS ORDERED: MIDAZOLAM 1 MG/ML 2 ML INJ ONE (16:42)
[2016-09-12] MEDS ORDERED: CEFAZOLIN 1 GM INJ ONE (16:57)
[2016-09-12] MEDS ORDERED: ONDANSETRON 4 MG INJ ONE (16:58)
[2016-09-12] MEDS ORDERED: DEXAMETHASONE 4 MG/ML 1 ML INJ ONE (16:58)
[2016-09-12] MEDS ORDERED: BUPIVACAINE 0.25% (MPF) 30 ML INJ ONE (17:22)
[2016-09-12] MEDS ORDERED: DIPHENHYDRAMINE 50 MG INJ IV PRN (17:30)
[2016-09-12] MEDS ORDERED: MEPERIDINE 25 MG INJ IV PRN (17:30)
[2016-09-12] MEDS ORDERED: HYDROCODONE/APAP (5/325) TAB PO ONE (17:30)
[2016-09-12] MEDS ORDERED: HYDROmorphONE (0.2 MG/ML) 10ML SYG IV PRN ×2 (17:30)
[2016-09-12] MEDS ORDERED: FLUMAZENIL 0.5 MG INJ ONE (17:45)
--- NOTE | 2016-09-12 18:11 | OPR ---
DATE OF OPERATION: 09/12/2016 INDICATION: This is a 41-year-old male who had a prior history of hemorrhoids, presenting with recu rrent hemorrhoids and anal stenosis. He requests surgical repair. Risks, alternatives, benefits, a nd personnel were discussed with the patient. Patient expressed understanding and consents to the o peration. PREOPERATIVE DIAGNOSES: Recurrent hemorrhoids and anal stenosis. POSTOPERATIVE DIAGNOSES: Recurrent hemorrhoids and anal stenosis. OPERATIONS: 1. Complex internal and external hemorrhoidectomy x2. 2. Anal dilatation. 3. Fecal disimpaction. 4. Rigid proctoscopy. SURGEON: Kat Lockhart MD SPECIMEN: Right anterior and left lateral hemorrhoidal complexes. COMPLICATIONS: None. ANESTHESIA: General. PROCEDURE IN DETAIL: The patient was taken to the OR and prepped and draped in usual sterile fashio n. Surgical timeout was performed. IV antibiotics were given. On initial inspection, there appear s to be some level of anal stenosis with some recurrent hemorrhoids which are making him difficult t o have any bowel movements. A 15 blade was used for controlled release of scar tissue around the an al canal. There appears to be some hemorrhoidal tissue in the right anterior and left lateral porti ons. This was addressed by first making a #15 blade incision around the hemorrhoidal complexes and then excising with a handheld LigaSure. The anal dilation was then performed with 2 fingers with a controlled release of the scar tissue. Then, rigid proctoscopy was performed. There is no evidence of any masses or lesions except for the anal stenosis. The fecal material was then disimpacted man ually from higher up in the rectum. Hemostasis was established. Local anesthesia was injected. Dr y dressings were applied. Dictated By: KAT LOCKHART MD SB/RANCHO Conf#: [id number] DID#: [id number]
== END 2016-09-12 20:00 | disposition home or self-care (01) ==
LOC: FTE 07:42 → SDS 15:38
PROVIDERS: ATTEND Surgery
DX: K62.4 Stenosis of anus and rectum (principal); K64.8 Other hemorrhoids; K64.4 Residual hemorrhoidal skin tags
CPT/HCPCS: 36415; 45303; 46260; 71010; 80048; 85025; 85610; 85730; 88304; 93005; J0330; J0690; J1100; J2250; J2405; J3010; J3480; Z7502; Z7512; Z7610

== ENCOUNTER 2016-10-11 06:32 | Inpatient (IN) | payer OTHER ==
[2016-10-11] VITALS (20 sets, daily range): BP systolic 110–140; BP diastolic 70–90; PULSE 80–100; RESP 10–20; TEMP 97.8; Ht 160 cm; Wt 50.9 kg
[~2016-10-11] VITALS: Ht 160 cm; Wt 50.9 kg
[~2016-10-11 06:32] MED LIST changes: -PROPOFOL 200 MG INJ ONE
--- NOTE | 2016-10-11 07:06 | ERA ---
ER Documentation Chief Complaint Date/Time DATE: 10/11/16 TIME: 07:04 Chief Complaint constipation x 6 days postop hemrrhoid HPI 41-year-old male sent in by Dr. Lockhart for difficulty having bowel movements. Patient has a history of hemorrhoids status post hemorrhoidectomy complicated by anal stenosis. He had multiple anal dilations and fecal disimpaction within the past few months, with recurrence of his symptoms. He is unable to have bowel movements. Last bowel movement was 6 days ago. He complains of abdominal discomfort with bowel movements but no pain at this time. No nausea or vomiting. No fevers or chills. He saw Dr Lockhart yesterday who told him to come in for admission for surgery. ROS All systems reviewed and are negative except as per history of present illness. Medications Home Meds Active Scripts Metronidazole* (Flagyl*) 500 Mg Tablet, 500 MG PO TID for 7 Days, TAB Prov:ZEINA VALENTIN 08/09/16 Ciprofloxacin Hcl* (Ciprofloxacin Hcl*) 500 Mg Tablet, 500 MG PO BID for 7 Days , TAB Prov:ZEINA VALENTIN 08/09/16 Pantoprazole* (Protonix*) 40 Mg Tablet., 40 MG PO DAILY, #20 TAB Prov:ZEINA VALENTIN 08/09/16 Docusate Sodium* (Colace*) 100 Mg Capsule, 100 MG PO BID, #30 CAP Prov:ZEINA VALENTIN 08/09/16 Hydrocodone Bit-Acetaminophen (Hydrocodone Bit-APAP) 5-325MG Tablet, 1 TAB PO Q6H Y for PAIN LEVEL 6-10, #20 TAB Prov:ZEINA VALENTIN 08/09/16 Allergies Allergies: Coded Allergies: No Known Allergies (Verified Allergy, Unknown, 10/11/16) PMhx/Soc History of Surgery: Yes (hemorrhoidectomy complicated by anal stenosis) Anesthesia Reaction: No Hx Neurological Disorder: No Hx Respiratory Disorders: No Hx Cardiac Disorders: No Hx Psychiatric Problems: No Hx Miscellaneous Medical Probl: Yes (anal stricture , hemorrhoids ) Hx Alcohol Use: No Hx Substance Use: No Hx Tobacco Use: No Smoking Status: Never smoker FmHx Family History: No diabetes Physical Exam Vitals Vital Signs Date Time Temp Pulse Resp B/P Pulse Ox O2 Delivery O2 Flow Rate FiO2 10/11/16 06:37 98.0 99 20 125/87 100 Physical Exam Const: [] Head: Atraumatic Eyes: Normal Conjunctiva ENT: Normal External Ears, Nose and Mouth. Neck: Full range of motion..~ No meningismus. Resp: Clear to auscultation bilaterally Cardio: Regular rate and rhythm, no murmurs Abd: Soft, non tender, non distended. Normal bowel sounds Skin: No petechiae or rashes Back: No midline or flank tenderness Ext: No cyanosis, or edema Neur: Awake and alert Psych: Normal Mood and Affect Procedures/MDM 41-year-old male is here for difficulty with bowel movements. He has a history of hemorrhoids and anal stricture. He is a patient of Dr. Castanon who he saw yesterday and told him to come in today for admission so that he can try to fit him in to surgery today for anal dilation and fecal disimpaction. Vitals are stable. He is well-appearing. Preop workup was started. Patient will be admitted by Dr. Weiss and will be taken to the OR by Dr. Lockhart. Departure Diagnosis: Primary Impression: Acquired anal stenosis Condition: Stable SHAW DIEZ PA-C October 11, 2016 07:06
[2016-10-11 07:24] LABS: ADD SCAN DIFF NO
[2016-10-11 07:29] LABS: BASOPHIL # 0.1 10^3/ul (0.0-0.1); EOSINOPHILS # 0.2 10^3/ul (0.0-0.5); EOSINOPHILS % 3.3 % (0.0-7.0); HEMOGLOBIN 14.4 g/dl (14.0-18.0); LYMPHOCYTES # 2.7 10^3/ul (0.8-2.9); LYMPHOCYTES % 38.5 % (15.0-51.0); MEAN CORPUSCULAR HEMOGLOBIN 30.4 pg (29.0-33.0); MEAN CORPUSCULAR HGB CONC 33.5 g/dl (32.0-37.0); MEAN CORPUSCULAR VOLUME 90.9 fl (82.0-101.0); MEAN PLATELET VOLUME 9.4 fl (7.4-10.4); MONOCYTE # 0.4 10^3/ul (0.3-0.9); MONOCYTES % 6.1 % (0.0-11.0); NEUTROPHIL # 3.6 10^3/ul (1.6-7.5); NEUTROPHILS % 50.8 % (39.0-77.0); PLATELET COUNT 262 10^3/UL (140-415); RED BLOOD COUNT 4.73 10^6/ul (4.70-6.10)
--- NOTE | 2016-10-11 07:35 | RADRPT ---
PROCEDURE: XR Chest. CLINICAL INDICATION: chest pain TECHNIQUE: Single frontal view of the chest was obtained COMPARISON: 09/12/2016 FINDINGS: The heart and mediastinum are within normal limits. The lungs are clear. There is no pleural effusion or pneumothorax. RPTAT: AA IMPRESSION: No acute disease. .Aurelio Avila MD, MD Date Time Electronically viewed and signed by .Aurelio Avila MD, on 10/11/2016 07:35 .S/
[2016-10-11 07:45] LABS: INR 0.95; PROTIME 12.7 Sec (12.2-14.2)
[2016-10-11 07:46] LABS: ALBUMIN 4.4 g/dl (3.3-4.9); PARTIAL THROMBOPLASTIN TIME 33.2 Sec (25.0-35.0)
[2016-10-11 07:47] LABS: POTASSIUM 3.7 mmol/L (3.5-5.1)
[2016-10-11 07:49] LABS: ALBUMIN/GLOBULIN RATIO 1.33; BILIRUBIN,INDIRECT 0.3 mg/dl (0-1.1); BILIRUBIN,TOTAL 0.3 mg/dl (0.2-1.3); CREATININE 0.81 mg/dl (0.61-1.24); TOTAL PROTEIN 7.7 g/dl (6.1-8.1)
[2016-10-11 07:50] LABS: CALCIUM 9.1 mg/dl (8.4-10.2)
[2016-10-11] MEDS ORDERED: ONDANSETRON 4 MG INJ IV PRN ×2 (12:00→14:00)
[2016-10-11] MEDS ORDERED: D5W-0.45 NACL + KCL 20 MEQ 1,000 ML IV SCH (12:00)
[2016-10-11] MEDS ORDERED: KETOROLAC 15 MG INJ IV PRN (12:00)
[2016-10-11] MEDS ORDERED: morphine 10 MG INJ IM PRN (12:00)
--- NOTE | 2016-10-11 12:15 | HP ---
DATE OF ADMISSION: 10/11/2016 CHIEF COMPLAINT: Constipation. HISTORY OF PRESENT ILLNESS: The patient is a 41-year-old gentleman well known to me from previous a dmissions. The patient has a history of recent complex internal and external hemorrhoidectomy back in May 2016. The patient subsequently underwent anal evaluation and fecal impaction back in Aug. The patient went to see Dr. Lockhart yesterday because of constipation. The patient reported t hat his last BM was approximately 6 days ago. The patient did not have any significant abdominal pa in or nausea, vomiting. Denies any chest pain, shortness of breath. No history of fever or chills. No history of dysuria. No history of rectal bleed. The patient was advised to go to [facility] and was seen in the ER, the patient was noted to have stable vital signs with no fever. Labs rev ealed a normal CBC and unremarkable chemistry. The patient is being admitted for further evaluation and management. The patient did have a chest x-ray done today which was unremarkable. REVIEW OF SYSTEMS: As above. The patient did report that he used to have anal pain during bowel mo vement. PAST MEDICAL HISTORY: As stated above. FAMILY HISTORY: Noncontributory. SOCIAL HISTORY: The patient smokes a pack of cigarettes a day. No history of alcohol or drug abuse . ALLERGIES: NONE. MEDICATIONS PRIOR TO ADMISSION: 1. Cipro. 2. Flagyl. 3. [place]. 4. Colace. 5. Protonix. PHYSICAL EXAMINATION: GENERAL: The patient is conscious, awake, alert. VITAL SIGNS: Temperature 97.8, pulse 90, respirations 19, blood pressure 122/69, O2 saturation 99% on room air. HEENT: Conjunctivae and lids normal. Oropharynx clear. NECK: Supple. No mass, no thyromegaly. LUNGS: Clear to auscultation. CARDIOVASCULAR: S1, S2 normal. No murmur, gallop, or rub. ABDOMEN: Soft, nontender, nondistended. Bowel sounds plus. EXTREMITIES: No leg edema. NEUROLOGIC: The patient is awake, alert, fairly oriented with no gross focal deficit. IMPRESSION: 1. Possible anal stricture. 2. History of hemorrhoids status post complex internal and external hemorrhoidectomy in May. PLAN: The patient admitted on medical floor. The patient will be kept n.p.o., will be given IV flu id, IV pain medication, and IV Zofran. Will use SCD for DVT prophylaxis. Further recommendations w ill depend on the patient's hospital course and recommendations from Dr. Lockhart. The patient most like ly will be taken to OR for anal dilatation and fecal disimpaction. We will continue to follow him f rom a medical standpoint. Dictated By: WINDY MAGAÑA/RANCHO Conf#: [id number] DID#: [id number]
[2016-10-11] MEDS ORDERED: SOD CHLORIDE 0.9% 1,000 ML IV SCH (12:59)
[2016-10-11] MEDS ORDERED: OXYCODONE/ACETAMINOPHEN (5/325) TAB PO PRN ×2 (14:00)
[2016-10-11] MEDS ORDERED: DIPHENHYDRAMINE 50 MG INJ IV PRN (14:00)
[2016-10-11] MEDS ORDERED: MEPERIDINE 25 MG INJ IV PRN (14:00)
[2016-10-11] MEDS ORDERED: FENTAnyl 50 MCG/ML VIAL IV PRN (14:00)
[2016-10-11] MEDS ORDERED: HYDROmorphONE (0.2 MG/ML) 10ML SYG IV PRN (14:00)
[2016-10-11] MEDS ORDERED: PROCHLORPERAZINE 10 MG INJ IV PRN (14:00)
[2016-10-11] MEDS ORDERED: SUCCINYLCHOLINE CHLORIDE 100 MG/5 ML SYG IV ONE (15:20)
[2016-10-11] MEDS ORDERED: LIDOCAINE 2% (SDV) 5 ML INJ ONE (15:20)
[2016-10-11] MEDS ORDERED: CEFAZOLIN 1 GM INJ ONE (15:21)
[2016-10-11] MEDS ORDERED: PROPOFOL 20 ML ONE (15:21)
[2016-10-11] MEDS ORDERED: MIDAZOLAM 1 MG/ML 2 ML INJ ONE (15:21)
[2016-10-11] MEDS ORDERED: BUPIVACAINE 0.25% (MPF) 30 ML INJ ONE (16:19)
[2016-10-11] MEDS ORDERED: ONDANSETRON 4 MG INJ ONE (16:52)
[2016-10-11] MEDS ORDERED: DEXAMETHASONE 4 MG/ML 1 ML INJ ONE (16:52)
[2016-10-11] MEDS: SOD CHLORIDE 0.9% 1,000 ML IV SCH ×2 (17:33→20:04)
[2016-10-11] MEDS ORDERED: HYDROCODONE/APAP (5/325) TAB PO PRN (18:00)
[2016-10-11] MEDS ORDERED: CEFAZOLIN 2 GM/50 ML (PMX) 50 ML IVPB SCH (18:00)
[2016-10-11] MEDS ORDERED: morphine 2 MG INJ IV PRN (18:00)
--- NOTE | 2016-10-11 18:03 | OPR ---
DATE OF OPERATION: 10/11/2016 INDICATION: This is a 41-year-old male who had chronic anal stenosis after hemorrhoidectomy. He has had repeated dilations and presents for another dilation. Risks, alternatives, benefits of the procedure were discussed with the patient. Patient expressed understanding and consents to the operation. PREOPERATIVE DIAGNOSIS: Anal stenosis. POSTOPERATIVE DIAGNOSES: Anal stenosis and internal hemorrhoids. OPERATION PERFORMED: 1. Anal dilatation. 2. Rigid proctoscopy. 3. Excision of left perianal mass 3 cm. 4. Internal hemorrhoidal artery ligation x2. SURGEON: Kat Lockhart MD SPECIMEN: Left perianal mass. COMPLICATIONS: None. ANESTHESIA: General. DESCRIPTION OF PROCEDURE: The patient was taken to the OR and prepped and draped in the usual sterile fashion. Surgical timeout was performed. IV antibiotics were given. On initial examination, there was anal stenosis and inability to examine with the rigid proctoscopy. The scar tissue and mass was fractured with a 10 blade in the 12 o'clock, 3 o'clock and 6 o'clock positions. Further inspection with the rigid proctoscopy shows that there were large extensive internal hemorrhoids. Additionally, there was minimal fecal impaction. There also was a hard mass in the left perianal area. This was excised using a 15 blade and [place], and handheld LigaSure. There was good hemostasis established. This allowed further visualization and dilatation of the scar tissue. Additionally, internal hemorrhoids were recognized and 2 ligations of the internal hemorrhoidal artery were performed with a 3-0 figure- of-eight suture at the 9 o'clock position and at the 2 o'clock position with the jackknife prone position. There was good hemostasis. Local anesthesia was injected. Dry dressings were applied. Dictated By: KAT LOCKHART MD SB/NTS Conf#: [id number] DID#: [id number] CC: WINDY CORRALES MD;*EndCC* MTDD
== END 2016-10-11 22:20 | disposition home or self-care (01) | DRG 349 ==
LOC: FTE 06:32 → MS1 07:32
PROVIDERS: ADMIT Internal Medicine; ATTEND Internal Medicine
PROC: 06LY3CC Occlusion of Hemorrhoidal Plexus with Extraluminal Device, Percutaneous Approach (ICD-10-PCS; 2016-10-11)
PROC: 0D7Q8ZZ Dilation of Anus, Via Natural or Artificial Opening Endoscopic (ICD-10-PCS; principal; 2016-10-11 17:00)
DX: K62.4 Stenosis of anus and rectum (principal); F17.200 Nicotine dependence, unspecified, uncomplicated; K64.8 Other hemorrhoids; I25.2 Old myocardial infarction; Z86.73 Personal history of transient ischemic attack (TIA), and cerebral infarction without residual deficits
CPT/HCPCS: 36415; 71010; 80053; 85025; 85610; 85730; 88304; J0690; J1100; J2250; J2405; J3010; J3480; J7030; J7999

== ENCOUNTER 2016-10-16 07:00 | Inpatient (IN) | payer OTHER ==
[~2016-10-16] VITALS: Ht 157.5 cm; Wt 53.5 kg
[2016-10-16] VITALS (22 sets, daily range): BP systolic 110–141; BP diastolic 61–88; PULSE 78–102; RESP 0–24; Ht 157.5 cm; Wt 53.5 kg
[2016-10-16] MEDS ORDERED: ONDANSETRON 4 MG INJ IV STA (07:32)
[2016-10-16] MEDS ORDERED: morphine 4 MG/ML VIAL IV STA (07:32)
[2016-10-16] MEDS ORDERED: ACETAMINOPHEN 325 MG TAB PO PRN (08:00)
[2016-10-16] MEDS ORDERED: ONDANSETRON 4 MG INJ IV PRN ×3 (08:00→14:30)
[2016-10-16 08:14] LABS: ADD SCAN DIFF NO
[2016-10-16 08:17] LABS: BASOPHIL # 0.1 10^3/ul (0.0-0.1); BASOPHILS % 0.4 % (0.0-2.0); EOSINOPHILS # 0.3 10^3/ul (0.0-0.5); EOSINOPHILS % 2.3 % (0.0-7.0); HEMATOCRIT 41.2 % (42.0-52.0); HEMOGLOBIN 13.3 g/dl (14.0-18.0); LYMPHOCYTES # 1.4 10^3/ul (0.8-2.9); LYMPHOCYTES % 12.1 % (15.0-51.0); MEAN CORPUSCULAR HEMOGLOBIN 29.9 pg (29.0-33.0); MEAN CORPUSCULAR HGB CONC 32.3 g/dl (32.0-37.0); MEAN CORPUSCULAR VOLUME 92.6 fl (82.0-101.0); MEAN PLATELET VOLUME 9.8 fl (7.4-10.4); MONOCYTES % 8.6 % (0.0-11.0); NEUTROPHIL # 8.9 10^3/ul (1.6-7.5); NEUTROPHILS % 76.3 % (39.0-77.0); PLATELET COUNT 229 10^3/UL (140-415); RED BLOOD COUNT 4.45 10^6/ul (4.70-6.10); RED CELL DISTRIBUTION WIDTH 12.2 % (11.5-14.5); WHITE BLOOD COUNT 11.7 10^3/ul (4.8-10.8)
--- NOTE | 2016-10-16 08:29 | RADRPT ---
PROCEDURE: Chest Radiograph. CLINICAL INDICATION: Upper GI bleed. TECHNIQUE: Single frontal chest radiograph. COMPARISON: Chest radiograph 10/11/2016 FINDINGS: The cardiomediastinal silhouette is within normal limits. No infiltrate or effusion is seen. Th e bones are intact. IMPRESSION: 1. Unremarkable chest radiograph. RPTAT: KK .Kayden Mcgovern MD, MD Date Time Electronically viewed and signed by .Kayden Mcgovern MD, on 10/16/2016 08:29 .B/
[2016-10-16 08:32] LABS: ALBUMIN 3.7 g/dl (3.3-4.9); CHLORIDE 101 mmol/L (97-110)
[2016-10-16 08:33] LABS: POTASSIUM 3.6 mmol/L (3.5-5.1); SODIUM 142 mmol/L (135-144)
--- NOTE | 2016-10-16 08:33 | ERA ---
ER Documentation Chief Complaint Date/Time DATE: 10/16/16 TIME: 08:31 Chief Complaint hx of rectal bleeds and surgery had surgery 2 days ago HPI Patient is a 41-year-old male with no medical problems who presents with rectal bleeding. He has a history of hemorrhoid surgery. He has had no bowel movement for the past few days. He spoke with Dr. Lockhart his surgeon who told him to come to the emergency department for admission. He was recently admitted on October 11 and had surgery done by Dr. Lockhart on October 11 as well. He was discharged on October 13. He said that he has bleeding today which started from his rectum. Upon review of old medical records this is the patient's seventh visit to the ER since May 2016 for similar type presentation. ROS All systems reviewed and are negative except as per history of present illness. Medications Home Meds Active Scripts Metronidazole* (Flagyl*) 500 Mg Tablet, 500 MG PO TID for 7 Days, TAB Prov:ZEINA VALENTIN 08/09/16 Ciprofloxacin Hcl* (Ciprofloxacin Hcl*) 500 Mg Tablet, 500 MG PO BID for 7 Days , TAB Prov:ZEINA VALENTIN 08/09/16 Pantoprazole* (Protonix*) 40 Mg Tablet.dr, 40 MG PO DAILY, #20 TAB Prov:ZEINA VALENTIN 08/09/16 Docusate Sodium* (Colace*) 100 Mg Capsule, 100 MG PO BID, #30 CAP Prov:ZEINA VALENTIN 08/09/16 Hydrocodone Bit-Acetaminophen (Hydrocodone Bit-APAP) 5-325MG Tablet, 1 TAB PO Q6H Y for PAIN LEVEL 6-10, #20 TAB Prov:ZEINA VALENTIN 08/09/16 Allergies Allergies: Coded Allergies: No Known Allergies (Verified Allergy, Unknown, 10/11/16) PMhx/Soc Medical and Surgical Hx: pt denies Medical Hx History of Surgery: Yes (HEMORRHOID SX ) Anesthesia Reaction: No Hx Neurological Disorder: No Hx Respiratory Disorders: No Hx Cardiac Disorders: No Hx Psychiatric Problems: No Hx Miscellaneous Medical Probl: Yes (anal stricture , hemorrhoids ) Hx Alcohol Use: No (DENIES) Hx Substance Use: No (DENIES) Hx Tobacco Use: Yes (4-CIGS/DAY) Smoking Status: Current every day smoker FmHx Family History: diabetes Physical Exam Vitals Vital Signs Date Time Temp Pulse Resp B/P Pulse Ox O2 Delivery O2 Flow Rate FiO2 10/16/16 07:14 98.4 113 18 117/74 99 Physical Exam Const: Mild distress secondary to pain Head: Atraumatic Eyes: Normal Conjunctiva ENT: Normal External Ears, Nose and Mouth. Neck: Full range of motion..~ No meningismus. Resp: Clear to auscultation bilaterally Cardio: Regular rate and rhythm, no murmurs Abd: Soft, non tender, non distended. Normal bowel sounds Skin: No petechiae or rashes Back: No midline or flank tenderness Ext: No cyanosis, or edema Neur: Awake and alert Psych: Normal Mood and Affect Result Diagram: 10/16/16 0800 Results 24 hrs Laboratory Tests Test 10/16/16 08:00 White Blood Count 11.710^3/ul Red Blood Count 4.4510^6/ul Hemoglobin 13.3g/dl Hematocrit 41.2% Mean Corpuscular Volume 92.6fl Mean Corpuscular Hemoglobin 29.9pg Mean Corpuscular Hemoglobin Concent 32.3g/dl Red Cell Distribution Width 12.2% Platelet Count 16745^3/UL Mean Platelet Volume 9.8fl Neutrophils % 76.3% Lymphocytes % 12.1% Monocytes % 8.6% Eosinophils % 2.3% Basophils % 0.4% Nucleated Red Blood Cells % 0.0/100WBC Neutrophils # 8.910^3/ul Lymphocytes # 1.410^3/ul Monocytes # 1.010^3/ul Eosinophils # 0.310^3/ul Basophils # 0.110^3/ul Nucleated Red Blood Cells # 0.010^3/ul Current Medications Medications (Trade) Dose Ordered Sig/Mark Route PRN Reason Start Time Stop Time Status Last Admin Dose Admin Ondansetron HCl (Zofran Inj) 4 mg ONCE STAT IV 10/16/16 07:32 10/16/16 07:33 DC 10/16/16 08:04 Morphine Sulfate (morphine) 4 mg ONCE STAT IV 10/16/16 07:32 10/16/16 07:34 DC 10/16/16 08:04 Ondansetron HCl (Zofran Inj) 4 mg BRIDGE ORDER PRN IV NAUSEA AND/OR VOMITING 10/16/16 08:00 10/17/16 07:59 Acetaminophen (Tylenol Tab) 650 mg ER BRIDGE PRN PO MILD PAIN/FEVER 10/16/16 08:00 10/17/16 07:59 Procedures/MDM EKG read by me: Rate/Rhythm: Regular rate and rhythm at a rate of 95 Intervals: Normal Impression: No evidence of ischemia or arrhythmia Smoking Cessation Therapy: Pt. was lectured for greater than 3 minutes on the health risks of continued smoking and the benefits of cessation. Patient is a 41-year-old male with hemorrhoids who presents with rectal bleeding. I spoke with Dr. Lockhart who asked me to admit the patient to Dr. Weiss as he plans to do a repeat procedure. The patient will need disimpaction. The patient will be admitted to a medical surgical bed. The patient has anemia with a hemoglobin of 13 but does not require transfusion at this time. Departure Diagnosis: Primary Impression: Rectal hemorrhage Additional Impression: Anemia Qualified Code: D64.9 - Anemia, unspecified type Condition: KAYA Barcenas MD October 16, 2016 08:33
[2016-10-16 08:35] LABS: ALBUMIN/GLOBULIN RATIO 1.05; ALKALINE PHOSPHATASE 65 IU/L (42-121); ANION GAP 15 (8-16); ASPARTATE AMINO TRANSFERASE 41 IU/L (15-46); BILIRUBIN,INDIRECT 0.3 mg/dl (0-1.1); BILIRUBIN,TOTAL 0.3 mg/dl (0.2-1.3); BLOOD UREA NITROGEN 13 mg/dl (7-20); CARBON DIOXIDE 30 mmol/L (21-31); CREATININE 0.82 mg/dl (0.61-1.24); TOTAL PROTEIN 7.2 g/dl (6.1-8.1)
[2016-10-16 08:36] LABS: ALANINE AMINOTRANSFERASE 64 IU/L (13-69); CALCIUM 8.9 mg/dl (8.4-10.2); GLUCOSE 104 mg/dl (70-220)
[2016-10-16 08:37] LABS: INR 0.9; PARTIAL THROMBOPLASTIN TIME 32.8 Sec (25.0-35.0); PROTIME 12.1 Sec (12.2-14.2); PT RATIO 0.9
[2016-10-16 08:56] LABS: TROPONIN-I < 0.012 ng/ml (0.00-0.12)
[2016-10-16] MEDS: DEXTROSE 5%-0.45% NACL 1,000 ML IV SCH (11:01)
[2016-10-16] MEDS ORDERED: BUPIVACAINE 0.25% (MPF) 30 ML INJ ONE (13:00)
[2016-10-16] MEDS ORDERED: MIDAZOLAM 1 MG/ML 2 ML INJ ONE (13:36)
[2016-10-16] MEDS ORDERED: FENTAnyl 50 MCG/ML VIAL ONE (13:36)
[2016-10-16] MEDS ORDERED: PHENYLephrine (100 MCG/ML) 5ML SYG ONE (13:49)
[2016-10-16] MEDS: PIPER-TAZO 3.375 GM IV (PMX) 100 ML IVPB SCH ×3 (14:00→22:41)
[2016-10-16] MEDS ORDERED: ROCURONIUM 50 MG INJ ONE (14:28)
[2016-10-16] MEDS ORDERED: GLYCOPYRROLATE 0.4 MG INJ ONE (14:28)
[2016-10-16] MEDS ORDERED: NEOSTIGMINE 3 MG/3 ML SYRINGE ONE (14:28)
[2016-10-16] MEDS ORDERED: LIDOCAINE 2% (SDV) 5 ML INJ ONE (14:29)
[2016-10-16] MEDS ORDERED: ONDANSETRON 4 MG INJ ONE (14:29)
[2016-10-16] MEDS ORDERED: PROPOFOL 20 ML ONE (14:29)
[2016-10-16] MEDS ORDERED: HYDROCODONE/APAP (5/325) TAB PO ONE (14:30)
[2016-10-16] MEDS ORDERED: HYDROmorphONE (0.2 MG/ML) 10ML SYG IV PRN (14:30)
[2016-10-16] MEDS ORDERED: DIPHENHYDRAMINE 50 MG INJ IV PRN (14:30)
[2016-10-16] MEDS ORDERED: MEPERIDINE 25 MG INJ IV PRN (14:30)
[2016-10-16] MEDS ORDERED: FENTAnyl 50 MCG/ML VIAL IV PRN (14:30)
[2016-10-16] MEDS: HYDROmorphONE (0.2 MG/ML) 10ML SYG IV PRN ×3 (15:21→15:39)
--- NOTE | 2016-10-16 19:00 | OPR ---
DATE OF OPERATION: 10/16/2016 INDICATION: This is a 41-year-old male who had initial hemorrhoidectomy with extreme hypertrophic s car tissue around the anus without difficulty with bowel movements. He has had multiple dilations a nd fecal disimpaction. He presents with more difficulty moving bowels and bleeding per rectum. Ris ks, alternatives, benefits, and personnel were discussed with the patient. The patient expressed un derstanding and consents to the operation. PREOPERATIVE DIAGNOSIS: Anal stenosis and hemorrhoids. POSTOPERATIVE DIAGNOSIS: Hemorrhoids. OPERATION PERFORMED: 1. Internal and external complex hemorrhoidectomy. 2. Rigid proctoscopy. SURGEON: Kat Lockhart MD SPECIMEN: Right lateral hemorrhoid. COMPLICATIONS: None. ANESTHESIA: General. PROCEDURE: The patient was taken to the OR and prepped and draped in usual sterile fashion. Surgic al timeout was performed. IV antibiotics were given. Rigid proctoscopy was performed. No evidence of any masses or lesions. There is evidence of a large right lateral internal external hemorrhoid with scar tissue on the right side. [id number] 3-0 Vicryl suture was placed in the right later al internal hemorrhoidal complex. Internal and external hemorrhoid was excised with a 15 blade and handheld LigaSure. There was good hemostasis. Local anesthesia was injected. Dry dressings were a pplied. Dictated By: KAT PENALOZA/RANCHO Conf#: [id number] DID#: [id number]
[2016-10-17] MEDS: DEXTROSE 5%-0.45% NACL 1,000 ML IV SCH (00:48)
[2016-10-17] MEDS: morphine 2 MG INJ IV PRN ×2 (01:44→06:19)
--- NOTE | 2016-10-17 01:59 | HP ---
DATE OF ADMISSION: 10/16/2016 CHIEF COMPLAINT AND HISTORY OF PRESENT ILLNESS: The patient is a 41-year-old gentleman who underwen t complex internal and external hemorrhoidectomy back in 05/2016. Since surgery, he has had multipl e admissions to the hospital for various complications including fecal impaction and anal stenosis. The patient in fact was admitted on 10/11/2016 and underwent anal dilatation, rigid proctoscopy, ex cision of ____ mass, 3 cm internal hemorrhoid artery ligation. The patient, however, wanted to go h ome on the day of surgery and was discharged. The patient presented with rectal bleed today, and Dr Tricia Higgins from ER spoke with Dr. Lockhart. The patient did not have any fever or chills. The patie nt did have slight elevation of white count to 11.7. Hemoglobin remained stable around 13.3. The p atient was kept n.p.o. and was subsequently seen by Dr. Lockhart and was taken to OR. The patient underw ent internal and external complex hemorrhoidectomy and rigid proctoscopy. The patient is being admi tted for further evaluation and management. The patient denied any recent chest pain, shortness of breath. No history of fever or chills. No history of abdominal pain. No history of headache, dizz iness, syncope. No history of dysuria or hematuria. PAST MEDICAL HISTORY: As stated above. FAMILY HISTORY: Noncontributory. SOCIAL HISTORY: The patient smokes a pack of cigarettes a day. No alcohol abuse. ALLERGIES: NONE. PHYSICAL EXAMINATION: GENERAL: The patient is conscious, awake, alert. VITAL SIGNS: Temperature 97.8, pulse 81, respiration 16, blood pressure 127/79, O2 saturation 96 on room air. HEENT: No eye discharge, redness. Oropharynx clear. NECK: Supple. No mass, no thyromegaly. CHEST: Clear to auscultation. CARDIOVASCULAR: S1, S2 normal. No murmur, gallop, rub. ABDOMEN: Soft, nondistended, nontender. EXTREMITIES: No leg edema. NEUROLOGIC: The patient is awake, alert, fairly oriented with no gross focal deficit. LABORATORY DATA: WBC 11.7, hemoglobin 13.3, platelets 229. Sodium 142, potassium 3.6, BUN 13, crea tinine 0.8, glucose 104. Liver enzymes normal. IMPRESSION: Anal stenosis and hemorrhoid with difficulty with bowel movements. The patient is stat us post multiple dilations and fecal disimpaction. The patient postoperatively will be started on I V fluid, IV Zosyn. The patient will also be given IV Protonix, IV Zofran and IV morphine for pain c ontrol. Will do followup CBC and BMP. Further recommendation depends on patient's course and recom mendation from Dr. Lockhart. Will continue to follow him postoperatively. Dictated By: WINDY MAGAÑA/RANCHO Conf#: [id number] DID#: [id number]
[2016-10-17] MEDS ORDERED: PANTOPRAZOLE 40 MG INJ IV SCH (06:00)
[2016-10-17] MEDS: PIPER-TAZO 3.375 GM IV (PMX) 100 ML IVPB SCH (06:18)
[2016-10-17 07:50] VITALS: BP 118/75; RESP 20
--- NOTE | 2016-10-17 13:11 | HP ---
DATE OF ADMISSION: 10/16/2016 CHIEF COMPLAINT: Rectal bleed. The patient had surgery 3 days ago, unable to have a bowel movement for the last 7 days. HISTORY OF PRESENT ILLNESS: This is a 41-year-old male without any chronic medical problems. The p atient had a history of hemorrhoids and underwent multiple surgeries by Dr. Lockhart. The patient with h istory of developing a rectal stricture and anal stenosis, status post multiple surgical interventio ns. The patient was recently admitted 5 days ago for chronic stenosis after hemorrhoidectomy and un derwent surgical intervention by Dr. Lockhart with anal dilatation, rigid proctoscopy, excision of the le ft perianal mass and internal hemorrhoidal arterial ligation x2. The patient was discharged home. However, stated that patient is unable to have a bowel movement, complains of bilateral lower quadr ant abdominal pain and mild rectal bleeding. The patient denies any nausea or vomiting. Denies any fever or chills. The patient will be admitted for further evaluation and management and possible s urgical intervention. PAST MEDICAL HISTORY: Per HPI. PAST SURGICAL HISTORY: Per HPI. SOCIAL HISTORY: The patient smokes about 1 pack of cigarettes per day, smoked for many years. Juvencio es any alcohol use, denies any illicit drug use. ALLERGIES: NO ALLERGIES. HOME MEDICATIONS: Include: 1. Flagyl. 2. Ciprofloxacin. 3. Protonix. 4. Colace. 5. Orrick. REVIEW OF SYSTEMS: A 12-point review of systems is negative unless what mentioned in the HPI. PHYSICAL ASSESSMENT: GENERAL: Well-developed, well-nourished male, currently is awake, alert. VITAL SIGNS: Temperature is 98.0, pulse is 89, blood pressure is 110/61, respiratory rate 16, oxyge n saturation 99% on room air. HEENT: Head is atraumatic, normocephalic. Pupils equal, round, reactive to light and accommodation . Oral mucosa is pink and moist. NECK: Supple, no cervical lymphadenopathy, no thyromegaly. CHEST: Lungs clear bilaterally. There is no rhonchi, wheezes, or rales noted. CARDIOVASCULAR: Normal S1, S2. No murmurs, gallops, clicks, rubs noted. ABDOMEN: Flat, soft, nondistended. Bowel sounds present. The patient had left lower quadrant tend erness. EXTREMITIES: No edema, clubbing, cyanosis. Pulses equal bilaterally 2+. SKIN: There is no rash or petechiae noted. NEUROLOGIC: The patient is awake, alert and oriented x4. No focal deficits noted. Motor strength is 5/5 in all extremities. LABORATORY DATA: On admission, CBC: White blood cells 11.7, hemoglobin 13.3, hematocrit 41.2, plat elets 229. Chemistry: Sodium is 142, potassium 3.6, chloride 101, carbon dioxide 30, anion gap 15, BUN 13, creatinine 0.82, glucose 104, calcium 8.9. AST 41, ALT 64, alkaline phosphatase 65. Tropo mariangel less than 0.01. Albumin 3.7. PT is 12.1, INR 0.9, APTT 32.8. IMAGING: Chest x-ray. The cardiomediastinal silhouette is within normal limits. No infiltrate or effusion is seen. The bones are intact. ASSESSMENT AND PLAN: 1. Rectal hemorrhage. 2. Anemia of blood loss. 3. Chronic anal stenosis. We will admit patient. Continue IV fluids. Keep patient n.p.o. for pos sible surgery. Start patient on Zosyn, Protonix IV for peptic ulcer disease prophylaxis, morphine p .r.n. for pain and Zofran p.r.n. for nausea. 4. Tobacco dependence. Tobacco cessation is strongly advised. We will continue to monitor hemoglobin and hematocrit. We will transfuse p.r.n. Continue sequentia l compression devices for deep venous thrombosis prophylaxis. Further recommendations based on clin ical course. Plan of care discussed with Dr. Weiss. Dictated By: ISRAEL MICHAELS [employer] for WINDY WEISS MD SR/NTS Conf#: [id number] DID#: [id number]
--- NOTE | 2016-10-22 18:02 | DS ---
DATE OF ADMISSION: 10/16/2016 DATE OF DISCHARGE: 10/17/2016 FINAL DIAGNOSES: 1. Rectal hemorrhage. 2. Anemia of blood loss. 3. Chronic anal stenosis and hemorrhoids status post internal and external complex hemorrhoidectomy and rigid proctoscopy. BRIEF HISTORY: The patient is a 41-year-old gentleman with anal stenosis and hemorrhoids who presen smith with difficulty to have bowel movements as patient had multiple dilatations and sickle disimpact ions. The patient was seeing Dr. Lockhart's office and instructed to come to the emergency room. The leida baer was admitted and subsequently underwent surgical intervention with Dr. Lockhart of internal and ext ernal complex hemorrhoidectomy and rigid proctoscopy for anal stenosis and hemorrhoids. The patient 's hemoglobin was 13.3, hematocrit was 41.2. Postoperatively, patient denies any bleeding. Patient was also given Zosyn. HOSPITAL COURSE: During the hospitalization, the patient was cleared by Dr. Lockhart for discharge and w as eager to leave the hospital and patient was discharged. CONDITION ON DISCHARGE: Hemodynamically stable. ACTIVITY: As patient tolerates. DIET: Regular diet. DISCHARGE MEDICATIONS: Patient given prescription for [place] p.r.n. for pain. The patient is to con tinue on her home medications of Colace, Flagyl and on Protonix. RECOMMENDATIONS: The patient instructed to follow up with Dr. Lockhart in postoperative appointment in 1 week. Interdisciplinary plan of care status for this patient. Plan of care was discussed with Dr. Fly rose Dictated By: ISRAEL MICHAELS [employer] for WINDY CORRALES MD SR/NTS Conf#: [id number] DID#: [id number]
== END 2016-10-17 12:10 | disposition home or self-care (01) | DRG 349 ==
LOC: E/R 07:00 → PP2 07:36
PROVIDERS: ADMIT Internal Medicine; ATTEND Internal Medicine
PROC: 06BY3ZC Excision of Hemorrhoidal Plexus, Percutaneous Approach (ICD-10-PCS; principal; 2016-10-16 14:00)
DX: K62.5 Hemorrhage of anus and rectum (principal); K62.4 Stenosis of anus and rectum; D50.0 Iron deficiency anemia secondary to blood loss (chronic); K64.8 Other hemorrhoids; F17.200 Nicotine dependence, unspecified, uncomplicated; K64.4 Residual hemorrhoidal skin tags; R19.4 Change in bowel habit
CPT/HCPCS: 36415; 71010; 80053; 84484; 85025; 85610; 85730; 86850; 86900; 86901; 88304; 93005; 96374; 96375; C9113; J1170; J2250; J2270; J2370; J2405; J2543; J2710; J3010; J7042

== ENCOUNTER 2016-11-05 08:53 | Observation (INO) | payer OTHER ==
[2016-11-05] VITALS (11 sets, daily range): BP systolic 107–125; BP diastolic 52–78; PULSE 80–108; RESP 15–23; TEMP 98.1; Ht 157.5 cm; Wt 52.6 kg
[~2016-11-05] VITALS: Ht 157.5 cm; Wt 52.6 kg
[~2016-11-05 08:53] MED LIST changes: -CIPR500T4 PO
--- NOTE | 2016-11-05 10:07 | ERA ---
ER Documentation Chief Complaint Date/Time DATE: 11/05/16 TIME: 10:04 Chief Complaint send by pmd for admission sad had hemorroidectomy 2 weeks ago , rectum clos HPI This a 41-year-old male who is here for admission for surgery on his anus due to repetitive anal strictures. The patient has had hemorrhoidectomies in the past multiple times with subsequent anal strictures. Patient is unable to have a bowel movement and has not had a bowel movement in 6-7 days. He says he has no abdominal pain no vomiting. He said he was told by his doctor to come to the ER for admission to have surgery today by Dr Chantelle DEL RIO All systems reviewed and are negative except as per history of present illness. Medications Home Meds Active Scripts Docusate Sodium* (Colace*) 100 Mg Capsule, 100 MG PO BID, #30 CAP Prov:ZEINA VALENTIN 08/09/16 Hydrocodone Bit-Acetaminophen (Hydrocodone Bit-APAP) 5-325MG Tablet, 1 TAB PO Q6H Y for PAIN LEVEL 6-10, #20 TAB Prov:ZEINA VALENTIN 08/09/16 Discontinued Scripts Metronidazole* (Flagyl*) 500 Mg Tablet, 500 MG PO TID for 7 Days, TAB Prov:ZEINA VALENTIN 08/09/16 Pantoprazole* (Protonix*) 40 Mg Tablet., 40 MG PO DAILY, #20 TAB Prov:ZEINA VALENTIN 08/09/16 Allergies Allergies: Coded Allergies: No Known Allergies (Verified Allergy, Unknown, 10/11/16) PMhx/Soc History of Surgery: Yes (hemmrohoid sx in May 2016) Anesthesia Reaction: No Hx Neurological Disorder: No Hx Respiratory Disorders: No Hx Cardiac Disorders: No Hx Psychiatric Problems: No Hx Miscellaneous Medical Probl: No Hx Alcohol Use: No Hx Substance Use: No Hx Tobacco Use: Yes Smoking Status: Current some day smoker FmHx Family History: No coronary disease Physical Exam Vitals Vital Signs Date Time Temp Pulse Resp B/P Pulse Ox O2 Delivery O2 Flow Rate FiO2 11/05/16 09:40 98.9 102 16 120/88 100 Room Air 11/05/16 08:59 98.2 121 18 134/95 99 Physical Exam Const: Well-developed, well-nourished Head: Atraumatic, normocephalic Eyes: Normal Conjunctiva, PERRLA, EOMI, normal sclera, no nystagmus ENT: Normal External Ears, Nose and Mouth, moist mucus membranes. Neck: Full range of motion. No meningismus, no lymphadenopathy. Resp: Clear to auscultation bilaterally, no wheezing, rhonchi, rales Cardio: Regular rate and rhythm, no murmurs, S1 S2 present Abd: Soft, non tender x 4, non distended. Normal bowel sounds, no guarding or rebound, no pulsitile abdominal masses or bruits Skin: No petechiae or rashes, no ecchymosis , no maculopapular rash Back: No midline or flank tenderness Ext: No cyanosis, or edema, FROM x 4, normal inspection, neurovascularly intact x 4 Neur: Awake and alert, STR 5/5 x 4, sensation intact x 4, no focal findings, cerebellum intact Psych: Normal Mood and Affect Procedures/MDM Spoke with Dr. de la torre Said to admit to Dr. Bard patten and he will have surgery later, get general lab Departure Diagnosis: Primary Impression: Anal stricture Condition: Stable SALENA ROSALES DO Nov 05, 2016 10:07
[2016-11-05 10:29] LABS: ADD SCAN DIFF NO
[2016-11-05] MEDS ORDERED: ONDANSETRON 4 MG INJ IV PRN ×2 (10:30→14:00)
[2016-11-05] MEDS ORDERED: ACETAMINOPHEN 325 MG TAB PO PRN (10:30)
[2016-11-05 10:36] LABS: BASOPHILS % 0.4 % (0.0-2.0); EOSINOPHILS # 0.1 10^3/ul (0.0-0.5); EOSINOPHILS % 1.3 % (0.0-7.0); HEMATOCRIT 39.2 % (42.0-52.0); HEMOGLOBIN 13.2 g/dl (14.0-18.0); LYMPHOCYTES % 23.6 % (15.0-51.0); MEAN CORPUSCULAR HEMOGLOBIN 30.6 pg (29.0-33.0); MEAN CORPUSCULAR HGB CONC 33.7 g/dl (32.0-37.0); MEAN CORPUSCULAR VOLUME 90.7 fl (82.0-101.0); MEAN PLATELET VOLUME 9.4 fl (7.4-10.4); MONOCYTE # 0.6 10^3/ul (0.3-0.9); MONOCYTES % 6.4 % (0.0-11.0); NEUTROPHIL # 5.8 10^3/ul (1.6-7.5); NEUTROPHILS % 67.8 % (39.0-77.0); PLATELET COUNT 325 10^3/UL (140-415); RED BLOOD COUNT 4.32 10^6/ul (4.70-6.10); RED CELL DISTRIBUTION WIDTH 12.1 % (11.5-14.5); WHITE BLOOD COUNT 8.6 10^3/ul (4.8-10.8)
[2016-11-05 10:59] LABS: ALBUMIN 4.6 g/dl (3.3-4.9); ALBUMIN/GLOBULIN RATIO 1.64; BILIRUBIN,INDIRECT 0.2 mg/dl (0-1.1); BILIRUBIN,TOTAL 0.2 mg/dl (0.2-1.3); CALCIUM 9.4 mg/dl (8.4-10.2); CREATININE 0.9 mg/dl (0.61-1.24); POTASSIUM 3.7 mmol/L (3.5-5.1); TOTAL PROTEIN 7.4 g/dl (6.1-8.1)
[2016-11-05 11:00] LABS: INR 0.91; PROTIME 12.3 Sec (12.2-14.2)
[2016-11-05 11:01] LABS: PARTIAL THROMBOPLASTIN TIME 31.5 Sec (25.0-35.0)
[2016-11-05] MEDS: SOD CHLORIDE 0.9% 1,000 ML IV SCH ×2 (12:00→18:00)
[2016-11-05] MEDS ORDERED: BUPIVACAINE 0.25% (MPF) 30 ML INJ ONE (12:12)
[2016-11-05] MEDS ORDERED: FENTAnyl 50 MCG/ML VIAL ONE (12:50)
[2016-11-05] MEDS ORDERED: MIDAZOLAM 1 MG/ML 2 ML INJ ONE (12:50)
--- NOTE | 2016-11-05 13:15 | CONS ---
DATE OF ADMISSION: 11/05/2016 DATE OF CONSULTATION: 11/05/2016 TYPE OF CONSULTATION: General Surgery HISTORY OF PRESENT ILLNESS: This is a 41-year-old male who has had repeated bouts of anal stenosis and large internal hemorrhoids. He underwent a hemorrhoidectomy with multiple anal dilatations requiring additional anal dilatations. He presents to the ER for anal stricture and inability to have bowel movements. He is being brought to the OR for anal dilation and hemorrhoidectomy. PAST MEDICAL HISTORY: None. PAST SURGICAL HISTORY: As stated above. SOCIAL HISTORY: Smokes 1 pack per day for many years. Denies any alcohol use or illicit drug use. ALLERGIES: NO KNOWN DRUG ALLERGIES. PHYSICAL EXAMINATION: GENERAL: A well-developed male. VITAL SIGNS: Temperature is 98.1, pulse of 88, respiratory rate is 16, blood pressure is 123/85. HEENT: Head is atraumatic, normocephalic. NECK: Supple, midline. CHEST: Clear to auscultation. CARDIOVASCULAR: Regular rate and rhythm. ABDOMEN: Soft, flat, slightly distended. No peritoneal signs. ASSESSMENT AND PLAN: This is a 41-year-old male with anal stricture and internal hemorrhoids. He will be brought to the OR for exploration and examination under anesthesia, proctoplasty, hemorrhoidectomy and rigid proctoscopy. Dictated By: YANIRA PENALOZA/RANCHO Conf#: [id number] DID#: [id number] MTDD
[2016-11-05] MEDS ORDERED: PHENYLephrine (100 MCG/ML) 5ML SYG ONE (13:47)
[2016-11-05] MEDS ORDERED: BUPIVACAINE 0.25% (MPF) 30 ML INJ INJ ONE (13:48)
[2016-11-05] MEDS ORDERED: ONDANSETRON 4 MG INJ ONE (14:00)
[2016-11-05] MEDS ORDERED: PROPOFOL 20 ML ONE (14:00)
[2016-11-05] MEDS ORDERED: LIDOCAINE 2% (SDV) 5 ML INJ ONE (14:00)
[2016-11-05] MEDS ORDERED: metroNIDAZOLE 500 MG/NS (PMX) 100 ML IVPB ONE (14:00)
[2016-11-05] MEDS ORDERED: NEOSTIGMINE 3 MG/3 ML SYRINGE ONE (14:00)
[2016-11-05] MEDS ORDERED: MEPERIDINE 25 MG INJ IV PRN (14:00)
[2016-11-05] MEDS ORDERED: GLYCOPYRROLATE 0.4 MG INJ ONE (14:00)
[2016-11-05] MEDS ORDERED: ROCURONIUM 50 MG INJ ONE (14:00)
[2016-11-05] MEDS ORDERED: DIPHENHYDRAMINE 50 MG INJ IV PRN (14:00)
[2016-11-05] MEDS ORDERED: CIPROFLOXACIN 400MG/D5W 200 ML ONE (14:00)
[2016-11-05] MEDS ORDERED: FENTAnyl 50 MCG/ML VIAL IV PRN (14:00)
--- NOTE | 2016-11-05 14:08 | OPR ---
Date/Time of Note Date/Time of Note DATE: 11/05/16 TIME: 14:06 Operative Report Procedure Date: Nov 05, 2016 Preoperative Diagnosis anal stenosis and recurrent hemorrhoids and fecal impaction Postoperative Diagnosis same Operation Performed rigid proctoscopy proctoplasty for mucous membranes internal hemorrhoid artery ligation multiple fecal disimpaction Surgeon: Maureen PRICE Anesthesia: general Maureen PRICE Nov 05, 2016 14:08
[2016-11-05] MEDS ORDERED: HYDROCODONE/APAP (5/325) TAB PO ONE (14:30)
--- NOTE | 2016-11-05 15:14 | OPR ---
DATE OF OPERATION: 11/05/2016 INDICATION: This is a 41-year-old male who had initial operation with hemorrhoidectomy, which was v morales large. He has had subsequent anal stricture and dilations and recurrent hemorrhoids. He presen ts with recurrent hemorrhoids and fecal impaction. He requests surgical repair. Risks, alternative s, benefits, and personnel were discussed with the patient. Patient expressed understanding and con sents to the operation. PREOPERATIVE DIAGNOSIS: Anal stenosis fecal impaction and hemorrhoids. POSTOPERATIVE DIAGNOSIS: Anal stenosis fecal impaction and hemorrhoids. OPERATION PERFORMED: 1. Proctoplasty for prolapse of mucous membranes, CPT code 45103. 2. Ligation of internal hemorrhoids, multiple procedures CPT codes 51904. 3. Right procotoscopy. 4. Fecal disimpaction. 6. Anal dilatation. SURGEON: Kat Lockhart MD. SPECIMEN: None. COMPLICATIONS: None. ANESTHESIA: General. DESCRIPTION OF PROCEDURE: The patient was taken to the OR and prepped and draped in the usual steri le fashion. Surgical timeout was performed. IV antibiotics were given. There was a component of s tricture in the anal canal. This was dilated with 2 finger manual dilation. Rigid proctoscopy perf ormed. There appears to be some fecal impaction and this was manually disimpacted. Additionally, t here were other areas of recurrent internal hemorrhoids. ___ was used to identify and ligate human resource internship al hemorrhoids in multiple locations in multiple quadrants with [id number] 2-0 Vicryl, which wa s sutured down with running up to the dentate line and then tied down in multiple quadrants with pro ctoplasty. Another rigid proctoscopy was performed. There is no evidence of any more strictures or narrowing. After the dilation, the areas of oozing were cauterized. Local anesthesia was injected . Dry dressings were applied. Dictated By: KAT LOCKHART MD SB/RANCHO Conf#: [id number] DID#: [id number]
[2016-11-05] MEDS ORDERED: D5W-0.45 NACL + KCL 20 MEQ 1,000 ML IV SCH (18:30)
[2016-11-05] MEDS: DOCUSATE SODIUM 100 MG CAP PO SCH (20:19)
--- NOTE | 2016-11-05 20:53 | HP ---
DATE OF ADMISSION: 11/05/2016 CHIEF COMPLAINT: The patient was sent by primary care physician for admission. The patient had hem orrhoidectomy 2 weeks ago and was unable to have a bowel movement. HISTORY OF PRESENT ILLNESS: The patient is a 41-year-old male with history of hemorrhoids and statu s post hemorrhoidectomy and repetitive anal stricture. The patient was unable to have a bowel movem ent for last 6 to 7 days. The patient denies any fever, chills. Denies any nausea, vomiting. The patient complains of abdominal pain. The patient was evaluated by Dr. Lockhart in general surgery [facility] and was taken to the OR. The patient underwent proctoplasty for prolapse of mucoid membrane, ligation of internal hemorrhoids, right proctoscopy and fecal disimpaction and anal dilatation. Po stoperatively, the patient admitted for further evaluation and management. PAST MEDICAL HISTORY: Per HPI. PAST SURGICAL HISTORY: As per HPI. SOCIAL HISTORY: The patient smokes about 1 pack cigarettes per day, smoked for many years. Denies any alcohol use, denies any illicit drug use. ALLERGIES: NO KNOWN ALLERGIES. HOME MEDICATIONS: Include: 1. Colace. 2. [place] p.r.n. for pain. REVIEW OF SYSTEMS: A 12-point review of systems is negative unless what mentioned in the HPI. PHYSICAL ASSESSMENT: GENERAL: Well-developed, well-nourished male, lethargic but easily arousable. No acute distress. VITAL SIGNS: Temperature is 98.3, pulse is 80, blood pressure 111/55, respiratory rate 19, oxygen s aturation 97% on room air. HEENT: Head is atraumatic, normocephalic. Pupils equal ____ reactive to light and accommodation. Oral mucosa is pink, moist. NECK: Supple. No cervical lymphadenopathy. CHEST: Lungs clear bilaterally. There are no rhonchi, wheezes, rales noted. CARDIOVASCULAR: Normal S1, S2. ABDOMEN: Flat, soft, nondistended, nontender. Bowel sounds present. EXTREMITIES: No edema, clubbing, cyanosis. Pulses equal bilaterally 2+. SKIN: There is no rash, petechiae noted. NEUROLOGIC: No neurological deficit noted. LABORATORY DATA ON ADMISSION: CBC: White blood cells 8.6, hemoglobin 13.2, hematocrit 39.2, platel ets 325. Chemistry: Sodium is 144, potassium 3.7, chloride 109, carbon dioxide 26, anion gap 13, B UN 16, creatinine 0.9, glucose 108. AST is 19, ALT is 41, alkaline phosphatase 49. PT is 12.3, INR 0.91, APTT is 31.5. ASSESSMENT AND PLAN: Recurrent hemorrhoids and fecal impaction with history of hemorrhoidectomy, st atus post proctoplasty of prolapse of mucous membrane, ligation of internal hemorrhoids, right proct oscopy, fecal disimpaction and anal dilatation. Continue to follow up Dr. Lockhart's recommendation. Co ntinue [place] p.r.n. for pain and Zofran p.r.n. for nausea. The patient received intraoperative anti biotics. Continue stool softeners. Sequential compression device for deep venous thrombosis prophy laxis. Further recommendations based on clinical course. Plan of care discussed with Dr. Weiss. Dictated By: ISRAEL MICHAELS [employer] for WINDY WEISS MD SR/NTS Conf#: [id number] DID#: [id number]
[2016-11-05] MEDS ORDERED: morphine 2 MG INJ IV PRN (23:00)
[2016-11-06] MEDS ORDERED: INSULIN ASPART [NOVOLOG] 3 ML PEN SC SCH
[2016-11-06 08:20] VITALS: BP 111/61; RESP 19
[2016-11-06] MEDS: DOCUSATE SODIUM 100 MG CAP PO SCH (08:40)
[2016-11-06] MEDS ORDERED: CALC625T68 PO (11:21)
[2016-11-06] MEDS ORDERED: DOCU-216 PO (11:21)
[2016-11-06] MEDS ORDERED: DOCU-144 PO (11:21)
[2016-11-06] MEDS ORDERED: SENN-36 PO (11:21)
--- NOTE | 2016-11-06 15:08 | DS ---
DATE OF ADMISSION: 11/05/2016 DATE OF DISCHARGE: 11/06/2016 DISCHARGE DIAGNOSES: Recurrent hemorrhoid and fecal impaction status post hemorrhoidectomy status p ost proctoplasty of prolapsed mucous membranes and ligation of internal hemorrhoids, right proctosco py, fecal disimpaction, and anal dilatation. DISCHARGE MEDICATIONS: The patient to resume home medication as before. The patient was taking Fib erCon, Colace, and Senokot at home. FOLLOWUP: The patient will follow up with Dr. Lockhart. REASON FOR ADMISSION: The patient is a 41-year-old gentleman who underwent hemorrhoidectomy back in May 2016. The patient since then has had multiple admissions for anal stricture and has underg one dilation and also recently underwent internal and external complex hemorrhoidectomy. The patien t came to ER with inability to have a bowel movement despite laxative. The patient was seen by Dr. Lockhart and was taken to OR and underwent proctoplasty for prolapse of mucous membrane, ligation of inte rnal hemorrhoids, fecal disimpaction, and anal dilatation. The patient postoperatively had urinary retention which spontaneously resolved, and this morning the patient was able to void. The patient has no fever or chills. VITAL SIGNS: Temperature 98.1, pulse 77, respirations 19, blood pressure 111/61, O2 saturation 97% on room air. The patient was cleared for discharge by Dr. Lockhart and will have followup as an outpatie nt. RECENT LABORATORIES: WBC 8.6, hemoglobin 13.2, platelets 325. Sodium 144, potassium 3.7, BUN 16, c reatinine 0.9. CONDITION ON DISCHARGE: Stable. Dictated By: WINDY MAGAÑA/NTS Conf#: [id number] DID#: [id number]
== END 2016-11-06 11:44 | disposition home or self-care (01) ==
LOC: E/R 08:53 → PP2 10:08
PROVIDERS: ADMIT Internal Medicine; ATTEND Internal Medicine
DX: K62.4 Stenosis of anus and rectum (principal); K56.41 Fecal impaction; K64.8 Other hemorrhoids; F17.210 Nicotine dependence, cigarettes, uncomplicated; E78.5 Hyperlipidemia, unspecified
CPT/HCPCS: 36415; 45505; 46946; 80053; 85025; 85610; 85730; J0744; J2175; J2250; J2370; J2405; J2710; J3010; J7030; Z7500; Z7502; Z7512; Z7610; 99217; G0378

== ENCOUNTER 2016-12-18 09:06 | Day surgery (SDC) | payer OTHER ==
[~2016-12-18] VITALS: Ht 160 cm; Wt 52.0 kg
[2016-12-18] VITALS (16 sets, daily range): BP systolic 138–166; BP diastolic 84–102; PULSE 77–102; RESP 16–20; Ht 160 cm; Wt 52.0 kg
[~2016-12-18 09:06] MED LIST changes: +CALC625T68 PO; +DOCU-216 PO; -HYDR-3498 PO; -METR500T PO; -PANT40TA3 PO; +SENN-36 PO
[2016-12-18 09:51] LABS: BASOPHIL # 0.1 10^3/ul (0.0-0.1); BASOPHILS % 0.8 % (0.0-2.0); EOSINOPHILS # 0.2 10^3/ul (0.0-0.5); EOSINOPHILS % 2.3 % (0.0-7.0); HEMATOCRIT 44.3 % (42.0-52.0); HEMOGLOBIN 14.8 g/dl (14.0-18.0); LYMPHOCYTES # 1.6 10^3/ul (0.8-2.9); LYMPHOCYTES % 21.1 % (15.0-51.0); MEAN CORPUSCULAR HEMOGLOBIN 30.5 pg (29.0-33.0); MEAN CORPUSCULAR HGB CONC 33.4 g/dl (32.0-37.0); MEAN CORPUSCULAR VOLUME 91.2 fl (82.0-101.0); MEAN PLATELET VOLUME 9.7 fl (7.4-10.4); MONOCYTE # 0.5 10^3/ul (0.3-0.9); MONOCYTES % 5.8 % (0.0-11.0); NEUTROPHIL # 5.4 10^3/ul (1.6-7.5); NEUTROPHILS % 69.9 % (39.0-77.0); PLATELET COUNT 262 10^3/UL (140-415); RED BLOOD COUNT 4.86 10^6/ul (4.70-6.10); RED CELL DISTRIBUTION WIDTH 11.9 % (11.5-14.5); WHITE BLOOD COUNT 7.7 10^3/ul (4.8-10.8)
[2016-12-18 09:56] LABS: ADD UMIC NO; UR ASCORBIC ACID NEGATIVE (NEGATIVE); UR BILIRUBIN (Dip) NEGATIVE (NEGATIVE); UR BLOOD (Dip) NEGATIVE (NEGATIVE); UR CLARITY CLEAR (CLEAR); UR COLOR YELLOW (YELLOW); UR GLUCOSE (Dip) NEGATIVE (NEGATIVE); UR KETONES (Dip) NEGATIVE (NEGATIVE); UR LEUKOCYTE ESTERASE (Dip) NEGATIVE Leu/ul (NEGATIVE); UR NITRITE (Dip) NEGATIVE (NEGATIVE); UR SPECIFIC GRAVITY (Dip) 1.027 (1.003-1.030); UR TOTAL PROTEIN (Dip) NEGATIVE (NEGATIVE); UR UROBILINOGEN (Dip) NEGATIVE (NEGATIVE)
[2016-12-18 10:07] LABS: INR 0.91; PARTIAL THROMBOPLASTIN TIME 31.6 Sec (25.0-35.0); PROTIME 12.3 Sec (12.2-14.2)
[2016-12-18 10:09] LABS: ALBUMIN 4.7 g/dl (3.3-4.9); ALBUMIN/GLOBULIN RATIO 1.27; BILIRUBIN,INDIRECT 0.3 mg/dl (0-1.1); BILIRUBIN,TOTAL 0.3 mg/dl (0.2-1.3); CALCIUM 9.6 mg/dl (8.4-10.2); CREATININE 0.89 mg/dl (0.61-1.24); POTASSIUM 3.6 mmol/L (3.5-5.1); TOTAL PROTEIN 8.4 g/dl (6.1-8.1)
--- NOTE | 2016-12-18 10:11 | ERA ---
ER Documentation Chief Complaint Date/Time DATE: 12/18/16 TIME: 918 Chief Complaint sent by pmd for constipation for 8 days, has hemorrhoidectomy 1 month ago HPI 41-year-old male presents to the emergency department on referral from his surgeon for evaluation of constipation for the last 8 days. Patient has a history of rectal stenosis that has required intervention in the past. He states that his symptoms are currently the same as what he has had in the past with this. He denies severe abdominal pain or vomiting. His surgeon evaluated him and recommended further intervention and presented to the emergency department. ROS All systems reviewed and are negative except as per history of present illness. Medications Home Meds Active Scripts Calcium Polycarbophil* (Fibercon*) 625 Mg Tablet, 625 MG PO BID, #30 TAB Prov:ISRAEL MICHAELS 11/06/16 Sennosides* (Senokot*) 8.6 Mg Tablet, 2 TAB PO BID, #30 TAB Prov:NAOMI MICHAELSA 11/06/16 Docusate Sodium (Dok) 100 Mg Capsule, 100 MG PO BID for 30 Days, CAP Prov:OZIEL MICHAELSLANA 11/06/16 Docusate Sodium* (Colace*) 100 Mg Capsule, 100 MG PO BID for 30 Days, CAP Prov:OZIEL MICHAELSLANA 11/06/16 Allergies Allergies: Coded Allergies: No Known Allergies (Verified Allergy, Unknown, 10/11/16) PMhx/Soc History of Surgery: Yes (hemorroidectomy and anal dilation ) Anesthesia Reaction: No Hx Neurological Disorder: No Hx Respiratory Disorders: No Hx Cardiac Disorders: No Hx Psychiatric Problems: No Hx Miscellaneous Medical Probl: No Hx Alcohol Use: No Hx Substance Use: No Hx Tobacco Use: No Smoking Status: Current every day smoker FmHx Noncontributory for chief complaint Physical Exam Vitals Vital Signs Date Time Temp Pulse Resp B/P Pulse Ox O2 Delivery O2 Flow Rate FiO2 12/18/16 09:07 97.9 108 18 130/66 100 Physical Exam GENERAL: The patient is well developed and appropriate for usual state of health in no apparent distress HEENT: Pupils equal, round, and reactive to light. EOMI. There is no scleral icterus. NECK: C-spine is soft and supple, there is no meningismus. There is no cervical lymphadenopathy. LUNGS: Clear to auscultation bilaterally. There are no rales, wheezes or rhonchi. HEART: Regular rate and rhythm, no murmurs, clicks, rubs or gallops. ABDOMEN: Soft, non-tender, non-distended. There are bowel sounds in all four quadrants. No rebound or guarding. EXTREMITIES: There is no peripheral cyanosis or edema. No focal swelling or erythema. NEURO: The patient moves all four extremities with 5/5 strength. Cranial nerves II - XII are intact. Normal gait. Alert and oriented SKIN: There is no apparent rash or petechiae. HEME/LYMPHATIC: There is no evidence of excessive bruising or lymphedema. PSYCHIATRIC: The patient does not appear anxious or depressed. Result Diagram: 12/18/1630 Results 24 hrs Laboratory Tests Test 12/18/16 09:30 White Blood Count 7.710^3/ul Red Blood Count 4.8610^6/ul Hemoglobin 14.8g/dl Hematocrit 44.3% Mean Corpuscular Volume 91.2fl Mean Corpuscular Hemoglobin 30.5pg Mean Corpuscular Hemoglobin Concent 33.4g/dl Red Cell Distribution Width 11.9% Platelet Count 71712^3/UL Mean Platelet Volume 9.7fl Neutrophils % 69.9% Lymphocytes % 21.1% Monocytes % 5.8% Eosinophils % 2.3% Basophils % 0.8% Nucleated Red Blood Cells % 0.0/100WBC Neutrophils # 5.410^3/ul Lymphocytes # 1.610^3/ul Monocytes # 0.510^3/ul Eosinophils # 0.210^3/ul Basophils # 0.110^3/ul Nucleated Red Blood Cells # 0.010^3/ul Prothrombin Time 12.3Sec Prothrombin Time Ratio 1.0 INR International Normalized Ratio 0.91 Activated Partial Thromboplast Time 31.6Sec Urine Color YELLOW Urine Clarity CLEAR Urine pH 5.0 Urine Specific [place] 1.027 Urine Ketones NEGATIVEmg/dL Urine Nitrite NEGATIVEmg/dL Urine Bilirubin NEGATIVEmg/dL Urine Urobilinogen NEGATIVEmg/dL Urine Leukocyte Esterase NEGATIVELeu/ul Urine Hemoglobin NEGATIVEmg/dL Urine Glucose NEGATIVEmg/dL Urine Total Protein NEGATIVEmg/dl Procedures/MDM Patient was taken to a room, seen and evaluated. Comfort measures were initiated. Diagnostic tests were ordered and reviewed. 3 LEAD RHYTHM STRIP: Normal sinus rhythm without ectopy EK lead EKG reviewed by myself: Normal Sinus Rhythm Normal [place]branch and intervals No ST elevation, depression, or T wave inversion Impression: Normal EKG RADIOLOGY: reviewed with the radiologist CONSULTATION: Dr. Weiss was notified for admission. Dr. Jose, patient's surgeon and I spoke by phone. REEVALUATION: Patient remained comfortable in the emergency room MEDICAL DECISION MAKIN-year-old male with a history of recurrent rectal stenosis presents to the emergency department for symptoms consistent with the above process. Patient will once again require admission for observation and surgical intervention as scheduled by Dr. Jose. At this time there is no evidence of significant high-grade obstruction based on x-ray Departure Diagnosis: Primary Impression: Rectal/anal stenosis Condition: CHRIS Briggs Dec 18, 2016 10:11
--- NOTE | 2016-12-18 10:22 | RADRPT ---
PROCEDURE: Chest x-ray CLINICAL INDICATION: Pain. TECHNIQUE: One-view frontal. COMPARISON: 10/16/2016 FINDINGS: The cardiac silhouette is normal. No infiltrates are noted. No hilar abnormalities are identified. No pneumothorax or pleural effusions are visualized. IMPRESSION: 1. No active cardiopulmonary changes. RPTAT: HGSG .Brando Aponte MD, MD Date Time Electronically viewed and signed by .Brando Aponte MD, on 12/18/2016 10:22 .G/
--- NOTE | 2016-12-18 11:30 | RADRPT ---
PROCEDURE: XR Abdomen. CLINICAL INDICATION: Abdominal pain. No bowel movement for 7 days. TECHNIQUE: AP abdomen x-ray. COMPARISON: None. FINDINGS: The bowel gas pattern is normal. Mild retained feces is seen in the colon. No evidence of fecal imp action. There is no evidence of obstruction. There are no abnormal calcifications overlying the uri nary tracts. The osseous structures are unremarkable. IMPRESSION: Unremarkable abdomen radiograph. RPTAT: JJ .Juwan Madden MD, MD Date Time Electronically viewed and signed by .Juwan Madden MD, on 12/18/2016 11:30 .L/
[2016-12-18] MEDS ORDERED: FENTAnyl 50 MCG/ML VIAL IV PRN (14:00)
[2016-12-18] MEDS ORDERED: ONDANSETRON 4 MG INJ IV PRN (14:00)
[2016-12-18] MEDS ORDERED: OXYCODONE/ACETAMINOPHEN (5/325) TAB PO PRN (14:00)
[2016-12-18] MEDS ORDERED: PROCHLORPERAZINE 10 MG INJ IV PRN (14:00)
[2016-12-18] MEDS ORDERED: DIPHENHYDRAMINE 50 MG INJ IV PRN (14:00)
[2016-12-18] MEDS ORDERED: MEPERIDINE 25 MG INJ IV PRN (14:00)
[2016-12-18] MEDS ORDERED: BUPIVACAINE 0.25% (MPF) 30 ML INJ INJ ONE (14:31)
--- NOTE | 2016-12-18 15:27 | OPR ---
Date/Time of Note Date/Time of Note DATE: 12/18/16 TIME: 15:19 Operative Report Procedure Date: Dec 18, 2016 Preoperative Diagnosis recurrent anal stenosis and hemorrhoids Postoperative Diagnosis same Operation Performed 1. proctoplasty, for prolapse of mucous membranes cpt code 37588 2. ligation of internal hemorrhoids, multiple procedures cpt code 98527 3. fecal disimpaction 4. anal dilation 5. therapeutic injection of subcutaneous marcaine cpt code 24128 Surgeon: Maureen PRICE Anesthesia: general Indications This is a 41-year-old male with recurrent hemorrhoids. He was referred to see a colorectal surgeon however the patient decided not to go. Patient presents with anal stenosis and difficulty with bowel movements. Patient is taken to the OR for fecal disimpaction anal dilatation examination under anesthesia and THD. Risks alternatives benefits in personal discussed the patient. Patient's best understanding since the operation. Procedure Description Patient taken to the OR and prepped and draped in usual sterile fashion surgical timeout performed IV antibiotics given. On initial inspection there is evidence of spinal stenosis. The anal verge is narrowed. This is dilated with finger fracture and sharp fracture with 15 blade and cautery. The fracture was placed with control in 3 different quadrants of the posterior right and left. Dilation was performed and some hardens hypertrophic scar tissue was also excised. The anal canal was examined there is no evidence of any masses or lesions however there is extensive and large internal hemorrhoids. THC device is used for ultrasound-guided ligation of internal hemorrhoids and multiple quadrants. Approximately 8 sites were chosen for [id number] 2-0 Vicryl sutures. The proctoplasty portion was then performed by running 2-0 Vicryl from for high up in the internal hemorrhoids down to the dentate line. This improved the patency of the anal canal. Hemostasis established in the areas of scar tissue fracture. There is some fecal material which is disimpacted manually as patient has been constipated for some time. This performed anal dilation and fecal disimpaction. Therapeutic subcutaneous Marcaine was injected into the surgical site. There is good hemostasis. Dry dressings were applied. Maureen PRICE Dec 18, 2016 15:27
[2016-12-18] MEDS ORDERED: HYDROCODONE/APAP (5/325) TAB PO ONE (15:30)
[2016-12-18] MEDS: HYDROmorphONE (0.2 MG/ML) 10ML SYG IV PRN ×2 (15:32→15:59)
[2016-12-19] MEDS ORDERED: KETOROLAC 30 MG INJ ONE (18:02)
[2016-12-19] MEDS ORDERED: DEXAMETHASONE 4 MG/ML 1 ML INJ ONE (18:02)
[2016-12-19] MEDS ORDERED: PROPOFOL 20 ML ONE (18:02)
[2016-12-19] MEDS ORDERED: MIDAZOLAM 1 MG/ML 2 ML INJ ONE (18:02)
[2016-12-19] MEDS ORDERED: CEFAZOLIN 1 GM INJ ONE (18:02)
[2016-12-19] MEDS ORDERED: SUCCINYLCHOLINE CHLORIDE 100 MG/5 ML SYG IV ONE (18:02)
[2016-12-19] MEDS ORDERED: FAMOTIDINE 20 MG INJ ONE (18:02)
[2016-12-19] MEDS ORDERED: LIDOCAINE 2% (SDV) 5 ML INJ ONE (18:02)
[2016-12-19] MEDS ORDERED: ONDANSETRON 4 MG INJ ONE (18:02)
[2016-12-19] MEDS ORDERED: FENTAnyl 50 MCG/ML VIAL ONE (18:02)
[2016-12-19] MEDS ORDERED: ESMOLOL 10 ML ONE (18:02)
[2016-12-19] MEDS ORDERED: BUPIVACAINE 0.25% (MPF) 30 ML INJ ONE (18:02)
[2016-12-19] MEDS ORDERED: PHENYLephrine (100 MCG/ML) 5ML SYG ONE (18:02)
--- NOTE | 2016-12-21 12:20 | HP ---
DATE OF ADMISSION: 12/18/2016 INDICATION: This is a 41-year-old male with anal stenosis. He had hemorrhoid surgery and subsequently had multiple anal dilatations. The patient had been doing well and was referred to colorectal surgery for evaluation. However, the patient felt like he was doing better and he decided not to go to colorectal surgery for evaluation and management. He appeared to the ER emergently with fecal retention and anal stenosis. The patient was taken to the OR for management. PAST MEDICAL HISTORY: Repeated anal dilatation after hemorrhoid surgery. PAST SURGICAL HISTORY: Anal dilatation and anal stenosis. ALLERGIES: NO KNOWN DRUG ALLERGIES. PHYSICAL EXAMINATION: VITAL SIGNS: Temperature is 97.9, pulse is 108, respiratory rate 18, blood pressure is 130/66. Pulse oximetry is 100 percent. GENERAL APPEARANCE: Generally well nourished male in no acute distress. HEENT: PERRLA, BOMI. NECK: Neck is supple, midline. LUNGS: Lungs are clear to auscultation. CARDIAC: Heart, regular rate and rhythm. ABDOMEN: Abdomen is soft and nontender. EXTREMITIES: No cyanosis or edema. RECTAL: Deferred. ASSESSMENT AND PLAN: This is a 41-year-old male with anal stenosis after hemorrhoid surgery. He has had multiple anal dilatations and was referred to colorectal surgery for evaluation and management. However, patient did not go to colorectal surgery as his symptoms seemed to be resolved apparently. He presents with fecal retention and anal stenosis and requests emergent evaluation and management. The patient will be taken to the OR for anal dilatation and hemorrhoid surgery as needed. Dictated By: Preston Mckinney /asael/ /Document#: [id number]
== END 2016-12-18 17:37 | disposition home or self-care (01) ==
LOC: E/R 09:06 → SDS 12:53
PROVIDERS: ATTEND Surgery
DX: K62.4 Stenosis of anus and rectum (principal); K64.8 Other hemorrhoids; F17.200 Nicotine dependence, unspecified, uncomplicated
CPT/HCPCS: 45505; 46946; 71010; 74010; 80053; 81003; 83690; 85025; 85610; 85730; 93005; Z7512; Z7610; 36415; J0690; J1100; J1170; J1885; J2250; J2370; J2405; J3010; J7999